=== PATIENT | male | born 1975 ===

== ENCOUNTER 2017-02-03 10:17 | Inpatient (IN) | payer OTHER ==
--- NOTE | 2017-02-03 11:38 | C.PDOC ---
History Of Present Illness 40 y/o male presents to ED with complaints of abdominal pain, abdominal distention and leg swelling for 4 days. Patient reports associated vomiting and denies fever, chills, diarrhea, back pain, dysuria or any other complaints at this time. Time Seen by Provider: 02/03/17 10:42 Chief Complaint (Nursing): Abdominal Pain History Per: Patient History/Exam Limitations: no limitations Onset/Duration Of Symptoms: Days Current Symptoms Are (Timing): Still Present Location Of Pain/Discomfort: Diffuse Quality Of Discomfort: "Pain" Associated Symptoms: Vomiting Past Medical History Reviewed: Historical Data, Nursing Documentation, Vital Signs Vital Signs: Last Vital Signs Temp 98 F 02/03/17 10:26 Pulse 88 02/03/17 17:39 Resp 18 02/03/17 17:39 BP 114/73 02/03/17 17:39 Pulse Ox 100 02/03/17 17:39 - Medical History PMH: No Chronic Diseases Surgical History: No Surg Hx Family History: States: No Known Family Hx - Social History Hx Alcohol Use: Yes Hx Substance Use: No - Immunization History Hx Tetanus Toxoid Vaccination: Yes Hx Influenza Vaccination: No Hx Pneumococcal Vaccination: Yes Review Of Systems Except As Marked, All Systems Reviewed And Found Negative. Constitutional: Negative for: Fever, Chills Gastrointestinal: Positive for: Nausea, Vomiting, Abdominal Pain. Negative for : Diarrhea Genitourinary: Negative for: Dysuria, Hematuria Musculoskeletal: Negative for: Back Pain Skin: Negative for: Rash Physical Exam - Physical Exam Appears: Non-toxic, Chronically Ill Skin: Warm, Dry, Pale, No Rash, Jaundice Head: Atraumatic, Normacephalic Eye(s): bilateral: Scleral Icterus Oral Mucosa: Moist Tongue: Normal Appearing, No Swelling Neck: Normal ROM, Supple Chest: Symmetrical Cardiovascular: Rhythm Regular Respiratory: Normal Breath Sounds, No Rales, No Rhonchi, No Wheezing Gastrointestinal/Abdominal: Distention, No Guarding, No Rebound, Hernia ( Umbilical), Ascites Male Genital: Scrotal Swelling Extremity: No Calf Tenderness, No Deformity, Swelling (Bilateral lower extremities) Neurological/Psych: Oriented x3, Normal Speech, Normal Cognition ED Course And Treatment - Laboratory Results Result Diagrams: 02/03/17 11:55 02/03/17 11:55 O2 Sat by Pulse Oximetry: 98 (RA) Pulse Ox Interpretation: Normal - Other Rad CXR X-Ray: Viewed By Me, Read By Radiologist Interpretation: Accession No. : [id number]. Patient Name / ID : OSCAR ESPINOSA / [id number]. Exam Date : 02/03/2017 12:04:31 ( Approved ). Study Comment : Sex / Age : M / 41Y. Creator : Dori Wirght MD. Dictator : Dori Wright MD. Valve Lapper : Ship/Rec/Doc Control : Dori Wright MD. Approver2 : Report Date : 02/03/2017 12:12:25. My Comment : . HISTORY: abd pain. COMPARISON: None available. TECHNIQUE: Chest, one view. FINDINGS: Examination limited by habitus and hypoinflation. LUNGS: No focal consolidation. Please note that chest x-ray has limited sensitivity for the detection of pulmonary masses. PLEURA: No significant pleural effusion identified. No definite pneumothorax . CARDIOVASCULAR: Heart size appears top normal, likely exaggerated by hypoinflation and portable technique. OSSEOUS STRUCTURES: No acute osseous abnormality identified. VISUALIZED UPPER ABDOMEN : Elevation of the right hemidiaphragm. OTHER FINDINGS: None. IMPRESSION: Hypoinflation. Elevated right hemidiaphragm. - CT Scan/US CT abdomen/pelvis Other Rad Studies (CT/US): Read By Radiologist, Radiology Report Reviewed CT/US Interpretation: Accession No. : [id number]. Patient Name / ID : OSCAR ESPINOSA / [id number]. Exam Date : 02/03/2017 14:14:22 ( Approved ) . Study Comment : Sex / Age : M / 41Y. Creator : Dori Wright MD. Dictator : Dori Wright MD. Valve Lapper : Ship/Rec/Doc Control : Dori Wright MD. Approver2 : Report Date : 02/03/2017 14:49:50. My Comment : . CT abdomen and pelvis without IV contrast. Indication: Abdominal pain, ascites, pancreatitis. Technique: Contiguous axial images of the abdomen and pelvis. No oral or IV contrast administered. Coronal and Sagittal reformats generated and reviewed. This CT exam was performed using 1 or more of the following dose reduction techniques: Automated exposure control, adjustment of the MAA and/or kV according to patient size, and/or use of iterative reconstruction technique. Radiation dose: Total exam DLP = 930.73 mGy-cm. Comparison: None available. Findings: Right basilar atelectasis/ pneumonia. No significant pleural effusion or visible pneumothorax. Calcified granulomas at the right lung base. Extensive diffuse abdominal and pelvic ascites. Nodular hepatic contour consistent with cirrhosis. Heterogeneous hepatic parenchyma. Splenomegaly. Cholelithiasis. The noncontrast kidneys appear unremarkable without hydronephrosis or obstructing calculus. Nodular appearance of the left adrenal gland. The right adrenal gland appears unremarkable. Question pancreatic prominence; otherwise grossly unremarkable unenhanced appearance. The stomach is nondistended. Absence of oral contrast limits evaluation for bowel pathology however colonic wall appears thickened ; correlate clinically for possibility of colitis (i.e. infectious, inflammatory, ischemic). No evidence of bowel obstruction. There is no definite free air. The appendix appears within normal limits of caliber. Fluid filled umbilical hernia. The urinary bladder appears unremarkable. Degenerative changes of the spine. Impression: Extensive diffuse abdominal and pelvic ascites. Nodular hepatic contour consistent with cirrhosis. Heterogeneous hepatic parenchyma. Splenomegaly. Cholelithiasis. Nodular appearance of the left adrenal gland. Question pancreatic prominence; otherwise grossly unremarkable unenhanced appearance. Recommend correlation with amylase and lipase. Absence of oral contrast limits evaluation for bowel pathology however colonic wall appears thickened ; correlate clinically for possibility of colitis (i.e. infectious, inflammatory, ischemic). Fluid filled umbilical hernia. Right basilar atelectasis/ pneumonia. Additional incidental findings as above. Progress Note: Blood work, UA, CXR. Case was d/w Hospitalist who accepted patient to [facility] for admission. Disposition - Disposition Disposition: HOSPITALIZED Disposition Time: 16:50 Condition: FAIR - Clinical Impression Clinical Impression: Abdominal pain, Alcoholic cirrhosis of liver with ascites, Pancreatitis - PA / SALES REPRESENTATIVE [employer] / Resident Statement MD/DO has reviewed & agrees with the documentation as recorded. - Scribe Statement The provider has reviewed the documentation as recorded by the Scribe Bryan Self All medical record entries made by the Carolinaibe were at my direction and personally dictated by me. I have reviewed the chart and agree that the record accurately reflects my personal performance of the history, physical exam, medical decision making, and the department course for this patient. I have also personally directed, reviewed, and agree with the discharge instructions and disposition. Decision To Admit - Pt Status Changed To: Hospital Disposition Of: Inpatient - Admit Certification Admit to Inpatient:: After my assessment, the patient will require hospitalization for at least two midnights. This is because of the severity of symptoms shown, intensity of services needed, and/or the medical risk in this patient being treated as an outpatient. - InPatient: Physician Admission Certification:: patient with liver cirrhosis, ascitis and pancreatitis need more than 2 days of hospitalization - . Bed Request Type: Regular Admitting Physician: Giancarlo Lopez Patient Diagnosis: Abdominal pain, Alcoholic cirrhosis of liver with ascites, Pancreatitis
[2017-02-03 12:01] LABS: BASO # 0.1 K/uL (0.0-0.2); EOS # 0.1 K/uL (0.0-0.7); RBC URINE < 1 /hpf (0-3); URINE BILIRUBIN 1+ (NEGATIVE); URINE BLOOD NEGATIVE (NEGATIVE); URINE COLOR Amber (YELLOW); URINE GLUCOSE (UA) NORMAL (Normal); URINE KETONE NEGATIVE (NEGATIVE); URINE LEUKOCYTE ESTERASE NEG Leu/uL (Negative); URINE PROTEIN NEGATIVE (NEGATIVE); WBC URINE 4 /hpf (0-5)
[2017-02-03 12:07] LABS: BASO % 0.7 % (0.0-2.0); CHLORIDE 98 mmol/L (98-107); EOS % 1.1 % (0.0-4.0); HEMATOCRIT 24.1 % (35.0-51.0); LYMPH # 0.8 K/uL (1.0-4.3); LYMPH % 6.5 % (20.0-40.0); MEAN CELL VOLUME 94.3 fL (80.0-94.0); MEAN CORPUSCULAR HEMOGLOBIN 33.1 pg (27.0-31.0); MEAN CORPUSCULAR HGB CONC 35.1 g/dL (33.0-37.0); MEAN PLATELET VOLUME 8.6 fL (7.2-11.7); MONO # 1.1 K/uL (0.0-0.8); MONO % 9.3 % (0.0-10.0); POTASSIUM 4.2 mmol/L (3.6-5.2); RED CELL DISTRIBUTION WIDTH 18.4 % (11.5-14.5); SODIUM 126 mmol/L (132-148); WHITE BLOOD COUNT 11.8 K/uL (4.8-10.8)
[2017-02-03 12:09] LABS: AST/SGOT 60 U/L (17-59); BILIRUBIN,TOTAL 6.9 mg/dL (0.2-1.3); CARBON DIOXIDE 16 mmol/L (22-30); GFR AFRICAN-AMERICAN > 60; PLATELET COUNT 71 K/uL (130-400)
[2017-02-03 12:10] LABS: ALB/GLOB RATIO 0.5 (1.0-2.1); ALKALINE PHOSPHATASE 135 U/L (38-126); ALT/SGPT 34 U/L (21-72); BLOOD UREA NITROGEN 21 mg/dL (9-20); CALCIUM 7.5 mg/dl (8.6-10.4); GLUCOSE,RANDOM 106 mg/dL (75-110); TOTAL PROTEIN 7.1 g/dL (6.3-8.3)
--- NOTE | 2017-02-03 12:13 | RAD ---
HISTORY: abd pain COMPARISON: None available. TECHNIQUE: Chest, one view. FINDINGS: Examination limited by habitus and hypoinflation. LUNGS: No focal consolidation. Please note that chest x-ray has limited sensitivity for the detection of pulmonary masses. PLEURA: No significant pleural effusion identified. No definite pneumothorax . CARDIOVASCULAR: Heart size appears top normal, likely exaggerated by hypoinflation and portable technique. OSSEOUS STRUCTURES: No acute osseous abnormality identified. VISUALIZED UPPER ABDOMEN: Elevation of the right hemidiaphragm. OTHER FINDINGS: None. IMPRESSION: Hypoinflation. Elevated right hemidiaphragm.
[2017-02-03 12:33] LABS: INR 2.4
[2017-02-03 12:49] LABS: NEUTROPHIL 85 % (50-75); TOTAL CELLS COUNTED 100
[2017-02-03] MEDS ORDERED: Albumin Human 25% (12.5 gm/50 ml) IV ONE (18:24)
[2017-02-03] MEDS ORDERED: Piperacillin/Tazobact 3.375 GM in Sodium Chloride 100 ML IVPB SCH (18:30)
--- NOTE | 2017-02-03 18:33 | CP.PCM.HP ---
<Nicole Bolton - Last Filed: 02/03/17 18:28> History of Present Illness - History of Present Illness History of Present Illness: Internal Medicine Consult for Dr. Ibarra Patient is a 41M presents with abdominal pain, leg pain and vomiting x 3 episodes. Patient states he's had swelling of his abdomen for 3-4 months. Patient said he used to drink a case of beer a day, but stopped 3-4 months ago due to his abdominal swelling. Patient states the pain was in his lower abdomen and left upper quadrant, but was given pain medication in ER and does not have issues at this time. Patient admits to subjective fever, leg pain without numbness. Patient Denies difficulty with vision, nausea, difficulty walking. Patient was given pain medication and is not feeling abdominal pain at this time. PSH: none FHx: DM for Parents, HTN in family, no cancer SHx: former smoker, 10 cigarettes a day. former ETOH abuse Present on Admission - Present on Admission Any Indicators Present on Admission: No History of DVT/PE: No History of Uncontrolled Diabetes: No Urinary Catheter: No Decubitus Ulcer Present: No Past Patient History - Infectious Disease Hx of Infectious Diseases: None - Past Social History Smoking Status: Former Smoker - HEMATOLOGICAL/ONCOLOGICAL Hx Cirrhosis: Yes - PSYCHIATRIC Hx Substance Use: No - SURGICAL HISTORY Hx Surgeries: No - ANESTHESIA Hx Anesthesia: No Meds Allergies/Adverse Reactions: Allergies Allergy/AdvReac Type Severity Reaction Status Date / Time No Known Allergies Allergy Verified 02/03/17 10:25 Physical Exam - Constitutional Appears: Non-toxic - Head Exam Head Exam: NORMAL INSPECTION - Eye Exam Eye Exam: EOMI, Normal appearance, Scleral icterus - ENT Exam ENT Exam: Mucous Membranes Moist - Neck Exam Neck exam: Positive for: Full Rom - Respiratory Exam Respiratory Exam: NORMAL BREATHING PATTERN. absent: Accessory Muscle Use, Chest Wall Tenderness Additional comments: left lung has minor crackles. CXR normal - Cardiovascular Exam Cardiovascular Exam: REGULAR RHYTHM, +S1, +S2. absent: Bradycardia, Tachycardia - GI/Abdominal Exam GI & Abdominal Exam: Distended. absent: Rebound Additional comments: positive fluid wave - Extremities Exam Extremities exam: Positive for: full ROM. Negative for: pedal edema - Back Exam Back exam: FULL ROM, NORMAL INSPECTION - Neurological Exam Neurological exam: Alert, Normal Gait, Oriented x3 - Psychiatric Exam Additional comments: patient seems sluggish, but answers appropriately - Skin Skin Exam: Dry Additional comments: jaundice. Results - Vital Signs Recent Vital Signs: Last Vital Signs Temp 98 F 02/03/17 10:26 Pulse 88 02/03/17 17:39 Resp 18 02/03/17 17:39 BP 114/73 02/03/17 17:39 Pulse Ox 98 02/03/17 18:19 - Labs Result Diagrams: 02/03/17 11:55 02/03/17 11:55 Labs: Laboratory Results - last 24 hr 02/03/17 02/03/17 02/03/17 11:55 11:55 11:55 WBC 11.8 H RBC 2.55 L Hgb 8.4 L Hct 24.1 L MCV 94.3 H MCH 33.1 H MCHC 35.1 RDW 18.4 H Plt Count 71 L MPV 8.6 Neut % (Auto) 82.4 H Lymph % (Auto) 6.5 L Mcpherson % (Auto) 9.3 Eos % (Auto) 1.1 Baso % (Auto) 0.7 Neut # 9.7 H Lymph # 0.8 L Mcpherson # 1.1 H Eos # 0.1 Baso # 0.1 Neutrophils % (Manual) 85 H Lymphocytes % (Manual) 7 L Monocytes % (Manual) 8 Platelet Estimate Decreased L Anisocytosis (manual) Slight PT INR APTT Sodium 126 L Potassium 4.2 Chloride 98 Carbon Dioxide 16 L Anion Gap 16 BUN 21 H Creatinine 1.0 Est GFR ( Amer) > 60 Est GFR (Non-Af Amer) > 60 Random Glucose 106 Calcium 7.5 L Total Bilirubin 6.9 H AST 60 H ALT 34 Alkaline Phosphatase 135 H Ammonia Total Protein 7.1 Albumin 2.4 L Globulin 4.7 H Albumin/Globulin Ratio 0.5 L Lipase 2313 H Urine Color [place] Urine Clarity Clear Urine pH 6.0 Ur Specific [place] 1.017 Urine Protein Negative Urine Glucose (UA) Normal Urine Ketones Negative Urine Blood Negative Urine Nitrate Negative Urine Bilirubin 1+ H Urine Urobilinogen 4.0 Ur Leukocyte Esterase Neg Urine WBC (Auto) 4 Urine RBC (Auto) < 1 Ur Squamous Epith Cells < 1 Urine Opiates Screen Urine Methadone Screen Ur Barbiturates Screen Ur Phencyclidine Scrn Ur Amphetamines Screen U Benzodiazepines Scrn U Oth Cocaine Metabols U Cannabinoids Screen 02/03/17 02/03/1702/03/17 11:55 12:12 17:06 WBC RBC Hgb Hct MCV MCH MCHC RDW Plt Count MPV Neut % (Auto) Lymph % (Auto) Mcpherson % (Auto) Eos % (Auto) Baso % (Auto) Neut # Lymph # Mcpherson # Eos # Baso # Neutrophils % (Manual) Lymphocytes % (Manual) Monocytes % (Manual) Platelet Estimate Anisocytosis (manual) PT 28.3 H INR 2.4 APTT 39 H Sodium Potassium Chloride Carbon Dioxide Anion Gap BUN Creatinine Est GFR ( Amer) Est GFR (Non-Af Amer) Random Glucose Calcium Total Bilirubin AST ALT Alkaline Phosphatase Ammonia 46 H Total Protein Albumin Globulin Albumin/Globulin Ratio Lipase Urine Color Urine Clarity Urine pH Ur Specific [place] Urine Protein Urine Glucose (UA) Urine Ketones Urine Blood Urine Nitrate Urine Bilirubin Urine Urobilinogen Ur Leukocyte Esterase Urine WBC (Auto) Urine RBC (Auto) Ur Squamous Epith Cells Urine Opiates Screen Negative Urine Methadone Screen Negative Ur Barbiturates Screen Negative Ur Phencyclidine Scrn Negative Ur Amphetamines Screen Negative U Benzodiazepines Scrn Negative U Oth Cocaine Metabols Negative U Cannabinoids Screen Negative Assessment & Plan - Assessment and Plan (Free Text) Assessment: 02/03 CXR: elevated Right abbey diaphragm 02/03 CT abdomen:cirrhosis, splenomegaly, pancreas follow up final read Consult GI: Dr. Sykes 02/03 f/u hepatitis Panel follow up recommendations Elevated Lipase 2300 f/u lipase AM Cirrhosis 10mg Lasix QD 25mg Aldactone POQD f/u ammonia AM lactulose 30 POBID tonight Albumin 30mg twice, 1 unit FFP, consented 02/03 follow up INR, PTT 02/04 order for nurse to have paracentesis kit at bedside and box of 1 litter bottles 02/04 plan for Paracentesis tomorrow 02/04 Zosyn 3.375gm Q8H Diet: Clear Liquid Diet Prophylaxis Protonix DVT: SCD Nicole Bolton DO PGY1 - Date & Time Date: 02/03/17 Time: 18:39 <David Ibarra H - Last Filed: 02/04/17 08:11> Results - Vital Signs Recent Vital Signs: Last Vital Signs Temp 97.6 F 02/04/17 04:15 Pulse 83 02/04/17 04:15 Resp 20 02/04/17 04:15 BP 107/51 L 02/04/17 04:15 Pulse Ox 98 02/04/17 04:15 - Labs Result Diagrams: 02/03/17 18:42 02/04/17 07:33 Labs: Laboratory Results - last 24 hr 02/03/17 02/03/17 02/03/17 11:55 11:55 11:55 WBC 11.8 H RBC 2.55 L Hgb 8.4 L Hct 24.1 L MCV 94.3 H MCH 33.1 H MCHC 35.1 RDW 18.4 H Plt Count 71 L MPV 8.6 Neut % (Auto) 82.4 H Lymph % (Auto) 6.5 L Mcpherson % (Auto) 9.3 Eos % (Auto) 1.1 Baso % (Auto) 0.7 Neut # 9.7 H Lymph # 0.8 L Mcpherson # 1.1 H Eos # 0.1 Baso # 0.1 Neutrophils % (Manual) 85 H Lymphocytes % (Manual) 7 L Monocytes % (Manual) 8 Platelet Estimate Decreased L Anisocytosis (manual) Slight PT INR APTT Sodium 126 L Potassium 4.2 Chloride 98 Carbon Dioxide 16 L Anion Gap 16 BUN 21 H Creatinine 1.0 Est GFR ( Amer) > 60 Est GFR (Non-Af Amer) > 60 Random Glucose 106 Calcium 7.5 L Total Bilirubin 6.9 H AST 60 H ALT 34 Alkaline Phosphatase 135 H Ammonia Total Protein 7.1 Albumin 2.4 L Globulin 4.7 H Albumin/Globulin Ratio 0.5 L Lipase 2313 H Urine Color [place] Urine Clarity Clear Urine pH 6.0 Ur Specific [place] 1.017 Urine Protein Negative Urine Glucose (UA) Normal Urine Ketones Negative Urine Blood Negative Urine Nitrate Negative Urine Bilirubin 1+ H Urine Urobilinogen 4.0 Ur Leukocyte Esterase Neg Urine WBC (Auto) 4 Urine RBC (Auto) < 1 Ur Squamous Epith Cells < 1 Urine Opiates Screen Urine Methadone Screen Ur Barbiturates Screen Ur Phencyclidine Scrn Ur Amphetamines Screen U Benzodiazepines Scrn U Oth Cocaine Metabols U Cannabinoids Screen Alcohol, Quantitative Blood Type Antibody Screen 02/03/17 02/03/17 02/03/17 11:55 12:12 16:58 WBC RBC Hgb Hct MCV MCH MCHC RDW Plt Count MPV Neut % (Auto) Lymph % (Auto) [place]pher[place] % (Auto) Eos % (Auto) Baso % (Auto) Neut # Lymph # [place] # Eos # Baso # Neutrophils % (Manual) Lymphocytes % (Manual) Monocytes % (Manual) Platelet Estimate Anisocytosis (manual) PT 28.3 H INR 2.4 APTT 39 H Sodium Potassium Chloride Carbon Dioxide Anion Gap BUN Creatinine Est GFR ( Amer) Est GFR (Non-Af Amer) Random Glucose Calcium Total Bilirubin AST ALT Alkaline Phosphatase Ammonia 46 H Total Protein Albumin Globulin Albumin/Globulin Ratio Lipase Urine Color Urine Clarity Urine pH Ur Specific [place] Urine Protein Urine Glucose (UA) Urine Ketones Urine Blood Urine Nitrate Urine Bilirubin Urine Urobilinogen Ur Leukocyte Esterase Urine WBC (Auto) Urine RBC (Auto) Ur Squamous Epith Cells Urine Opiates Screen Urine Methadone Screen Ur Barbiturates Screen Ur Phencyclidine Scrn Ur Amphetamines Screen U Benzodiazepines Scrn U Oth Cocaine Metabols U Cannabinoids Screen Alcohol, Quantitative < 10 Blood Type Antibody Screen 02/03/17 02/03/17 02/03/17 17:06 18:42 19:41 WBC 9.2 RBC 2.50 L Hgb 8.4 L Hct 23.9 L MCV 95.8 H MCH 33.6 H MCHC 35.1 RDW 18.2 H Plt Count 69 L MPV 8.5 Neut % (Auto) 74.9 Lymph % (Auto) 11.9 L Mcpherson % (Auto) 10.3 H Eos % (Auto) 2.0 Baso % (Auto) 0.9 Neut # 6.9 Lymph # 1.1 Mcpherson # 0.9 H Eos # 0.2 Baso # 0.1 Neutrophils % (Manual) Lymphocytes % (Manual) Monocytes % (Manual) Platelet Estimate Anisocytosis (manual) PT INR APTT Sodium Potassium Chloride Carbon Dioxide Anion Gap BUN Creatinine Est GFR ( Amer) Est GFR (Non-Af Amer) Random Glucose Calcium Total Bilirubin AST ALT Alkaline Phosphatase Ammonia Total Protein Albumin Globulin Albumin/Globulin Ratio Lipase Urine Color Urine Clarity Urine pH Ur Specific [place] Urine Protein Urine Glucose (UA) Urine Ketones Urine Blood Urine Nitrate Urine Bilirubin Urine Urobilinogen Ur Leukocyte Esterase Urine WBC (Auto) Urine RBC (Auto) Ur Squamous Epith Cells Urine Opiates Screen Negative Urine Methadone Screen Negative Ur Barbiturates Screen Negative Ur Phencyclidine Scrn Negative Ur Amphetamines Screen Negative U Benzodiazepines Scrn Negative U Oth Cocaine Metabols Negative U Cannabinoids Screen Negative Alcohol, Quantitative Blood Type O POSITIVE Antibody Screen Negative 02/04/17 02/04/17 02/04/17 06:25 07:33 07:33 WBC RBC Hgb Hct MCV MCH MCHC RDW Plt Count MPV Neut % (Auto) Lymph % (Auto) Mcpherson % (Auto) Eos % (Auto) Baso % (Auto) Neut # Lymph # [place] # Eos # Baso # Neutrophils % (Manual) Lymphocytes % (Manual) Monocytes % (Manual) Platelet Estimate Anisocytosis (manual) PT 24.3 H INR 2.1 APTT 37 H Sodium 129 L Potassium 3.7 Chloride 101 Carbon Dioxide 18 L Anion Gap 14 BUN 12 Creatinine 0.6 L Est GFR ( Amer) > 60 Est GFR (Non-Af Amer) > 60 Random Glucose 87 Calcium 7.6 L Total Bilirubin 5.8 H AST 47 ALT 29 Alkaline Phosphatase 98 Ammonia 23 D Total Protein 6.2 L Albumin 2.1 L Globulin 4.1 H Albumin/Globulin Ratio 0.5 L Lipase 266 Urine Color Urine Clarity Urine pH Ur Specific [place] Urine Protein Urine Glucose (UA) Urine Ketones Urine Blood Urine Nitrate Urine Bilirubin Urine Urobilinogen Ur Leukocyte Esterase Urine WBC (Auto) Urine RBC (Auto) Ur Squamous Epith Cells Urine Opiates Screen Urine Methadone Screen Ur Barbiturates Screen Ur Phencyclidine Scrn Ur Amphetamines Screen U Benzodiazepines Scrn U Oth Cocaine Metabols U Cannabinoids Screen Alcohol, Quantitative Blood Type Antibody Screen Attending/Attestation - Attestation I have personally seen and examined this patient.: Yes I have fully participated in the care of the patient.: Yes I have reviewed all pertinent clinical information: Yes Notes (Text): Medical Attending: Patient was seen and examined by me. Agree with the above note by the resident From what I understand the patient has a history of heavy alcohol use. It is not clear if he has/had hepatitis or a liver toxicicity or potential other liver pathologies. The patient seems to think it is due to his history of drinking. He intially came in with the CC of abdominal distention and this is giving him difficulty with walking. His medications include lasix as well as aldactone The patient explains he has not needed a paracentesis before in the past. The INR was 2.4, this is too high for paracenteis so will give FFP as well as vitamin K The patient has a low albumin as well, so will give albumin both before and after paracentesis. Platelet count is stable for now. Hopefully with the paracentesis will need things such as cytology, cell count, ph. protein, LDH, culture, etc. We did place him on abx as a precuation since he reported fever. Because this is his first time here at [facility] will get GI evaluation as well David Ibarra
[2017-02-03 18:54] LABS: BASO # 0.1 K/uL (0.0-0.2); BASO % 0.9 % (0.0-2.0); EOS # 0.2 K/uL (0.0-0.7); HEMATOCRIT 23.9 % (35.0-51.0); LYMPH # 1.1 K/uL (1.0-4.3); LYMPH % 11.9 % (20.0-40.0); MEAN CELL VOLUME 95.8 fL (80.0-94.0); MEAN CORPUSCULAR HEMOGLOBIN 33.6 pg (27.0-31.0); MEAN CORPUSCULAR HGB CONC 35.1 g/dL (33.0-37.0); MEAN PLATELET VOLUME 8.5 fL (7.2-11.7); MONO # 0.9 K/uL (0.0-0.8); MONO % 10.3 % (0.0-10.0); NRBC % 0.1 % (0.0-2.0); RED CELL DISTRIBUTION WIDTH 18.2 % (11.5-14.5); WHITE BLOOD COUNT 9.2 K/uL (4.8-10.8)
[2017-02-03] MEDS ORDERED: Sodium Chloride 0.9% 500 ML IV STA (18:58)
[2017-02-03] MEDS ORDERED: Sodium Chloride 0.9% 500 ML IV SCH (19:00)
--- NOTE | 2017-02-03 19:59 | CT ---
CT abdomen and pelvis without IV contrast Indication: Abdominal pain, ascites, pancreatitis Technique: Contiguous axial images of the abdomen and pelvis. No oral or IV contrast administered. Coronal and Sagittal reformats generated and reviewed. This CT exam was performed using 1 or more of the following dose reduction techniques: Automated exposure control, adjustment of the MAA and/or kV according to patient size, and/or use of iterative reconstruction technique. Radiation dose: Total exam DLP = 930.73 mGy-cm. Comparison: None available Findings: Right basilar atelectasis/ pneumonia. No significant pleural effusion or visible pneumothorax. Calcified granulomas at the right lung base. Extensive diffuse abdominal and pelvic ascites. Nodular hepatic contour consistent with cirrhosis. Heterogeneous hepatic parenchyma. Splenomegaly. Cholelithiasis. The noncontrast kidneys appear unremarkable without hydronephrosis or obstructing calculus. Nodular appearance of the left adrenal gland. The right adrenal gland appears unremarkable. Question pancreatic prominence; otherwise grossly unremarkable unenhanced appearance. The stomach is nondistended. Absence of oral contrast limits evaluation for bowel pathology however colonic wall appears thickened ; correlate clinically for possibility of colitis (i.e. infectious, inflammatory, ischemic). No evidence of bowel obstruction. There is no definite free air. The appendix appears within normal limits of caliber. Fluid filled umbilical hernia. The urinary bladder appears unremarkable. Degenerative changes of the spine. Impression: Extensive diffuse abdominal and pelvic ascites. Nodular hepatic contour consistent with cirrhosis. Heterogeneous hepatic parenchyma. Splenomegaly. Cholelithiasis. Nodular appearance of the left adrenal gland. Question pancreatic prominence; otherwise grossly unremarkable unenhanced appearance. Recommend correlation with amylase and lipase. Absence of oral contrast limits evaluation for bowel pathology however colonic wall appears thickened ; correlate clinically for possibility of colitis (i.e. infectious, inflammatory, ischemic). Fluid filled umbilical hernia. Right basilar atelectasis/ pneumonia. Additional incidental findings as above.
[2017-02-03] MEDS: Albumin Human 25% (12.5 gm/50 ml) IV SCH (21:41)
[2017-02-03] MEDS: Piperacillin/Tazobact 3.375 GM in Sodium Chloride 100 ML IVPB SCH (22:03)
[2017-02-04] MEDS: Piperacillin/Tazobact 3.375 GM in Sodium Chloride 100 ML IVPB SCH ×3 (06:00→22:16)
[2017-02-04 06:42] LABS: INR 2.1
[2017-02-04 07:49] LABS: CHLORIDE 101 mmol/L (98-107); POTASSIUM 3.7 mmol/L (3.6-5.2); SODIUM 129 mmol/L (132-148)
[2017-02-04 07:51] LABS: BILIRUBIN,TOTAL 5.8 mg/dL (0.2-1.3); GFR AFRICAN-AMERICAN > 60
[2017-02-04 07:52] LABS: ALB/GLOB RATIO 0.5 (1.0-2.1); ALKALINE PHOSPHATASE 98 U/L (38-126); ALT/SGPT 29 U/L (21-72); AST/SGOT 47 U/L (17-59); BLOOD UREA NITROGEN 12 mg/dL (9-20); CALCIUM 7.6 mg/dl (8.6-10.4); CARBON DIOXIDE 18 mmol/L (22-30); GLUCOSE,RANDOM 87 mg/dL (75-110); TOTAL PROTEIN 6.2 g/dL (6.3-8.3)
[2017-02-04] MEDS: Albumin Human 25% (12.5 gm/50 ml) IV SCH (08:22)
--- NOTE | 2017-02-04 08:58 | CP.PCM.CON ---
<Nayeli Roca - Last Filed: 02/04/17 08:59> History of Present Illness - History of Present Illness History of Present Illness: GI Fellow PGY4 Consult Note This is a 41yM with no prior pmhx except heavy alcohol drinking presents with increasing abdominal girth,ascites, LE edema, nausea, vomiting and abdominal pain. Patient states he's had swelling of his abdomen for 3-4 months. Patient said he used to drink a case of beer a day, but stopped 3-4 months ago due to his abdominal swelling. Patient states the pain was in his lower abdomen and left upper quadrant, but was given pain medication in ER and does not have issues at this time. Pt was prescribed Lasix/spironolactone by PCP in November which does not seem to be helping. No prior EGD/colonoscopy. Ros: A 12pt ROS was obtained and was negative except as above. PmHx: As stated in HPI PSHx: none FHx: DM for Parents, HTN in family, no cancer SHx: former smoker, ETOH [id number] of beer daily for 15 yrs, quite 3-4 months ago Past Patient History - Infectious Disease Hx of Infectious Diseases: None - Past Social History Smoking Status: Former Smoker - CARDIAC Hx Cardiac Disorders: No - PULMONARY Hx Respiratory Disorders: No - NEUROLOGICAL Hx Neurological Disorder: No - HEENT Hx HEENT Problems: No - RENAL Hx Chronic Kidney Disease: No - ENDOCRINE/METABOLIC Hx Endocrine Disorders: No - HEMATOLOGICAL/ONCOLOGICAL Hx Blood Disorders: No - INTEGUMENTARY Hx Dermatological Problems: No - MUSCULOSKELETAL/RHEUMATOLOGICAL Hx Falls: No Hx Fractures: Yes (Right arm, ribs) - GASTROINTESTINAL Hx Gastrointestinal Disorders: No - GENITOURINARY/GYNECOLOGICAL Hx Genitourinary Disorders: No - PSYCHIATRIC Hx Psychophysiologic Disorder: No Hx Substance Use: No - SURGICAL HISTORY Hx Surgeries: Yes Other/Comment: Right arm fx 6 yrs old - ANESTHESIA Hx Anesthesia: No (unclear) Meds Allergies/Adverse Reactions: Allergies Allergy/AdvReac Type Severity Reaction Status Date / Time No Known Allergies Allergy Verified 02/03/17 10:25 - Medications Medications: Current Medications Albumin Human (Albumin Human 25% (12.5 Gm/50 Ml)) 12.5 gm IV BID [facility] Stop: 02/04/17 10:01 Last Admin: 02/04/17 08:22 Dose: 12.5 gm Furosemide (Lasix) 20 mg IVP DAILY [facility] Piperacillin Sod/Tazobactam (Sod 3.375 gm/ Sodium Chloride) 100 mls @ 200 mls/ hr IVPB Q8 [facility] Last Admin: 02/04/17 06:00 Dose: 200 mls/hr Lactulose (Enulose) 30 gm PO BID [facility] Last Admin: 02/04/17 08:20 Dose: 30 gm Pantoprazole Sodium (Protonix Inj) 40 mg IVP DAILY [facility] Last Admin: 02/04/17 08:23 Dose: 40 mg Pneumococcal Polyvalent Vaccine (Pneumovax 23 Vaccine) 0.5 ml IM .ONCE ONE Stop: 02/06/17 10:01 Spironolactone (Aldactone) 25 mg PO BID [facility] Last Admin: 02/04/17 08:23 Dose: 25 mg Physical Exam - Constitutional Appears: No Acute Distress - Head Exam Head Exam: ATRAUMATIC, NORMAL INSPECTION, NORMOCEPHALIC - Eye Exam Eye Exam: EOMI, Scleral icterus Pupil Exam: PERRL - ENT Exam ENT Exam: Mucous Membranes Moist, Normal Exam - Neck Exam Neck exam: Positive for: Normal Inspection - Respiratory Exam Respiratory Exam: Decreased Breath Sounds, NORMAL BREATHING PATTERN - Cardiovascular Exam Cardiovascular Exam: RRR, +S1, +S2 - GI/Abdominal Exam GI & Abdominal Exam: Distended, Normal Bowel Sounds, Soft, Tenderness. absent: Organomegaly Additional comments: Ascites, fluid wave, umbilical hernia - Rectal Exam Rectal Exam: Deferred - Extremities Exam Extremities exam: Positive for: full ROM, pedal edema - Back Exam Back exam: NORMAL INSPECTION - Psychiatric Exam Psychiatric exam: Normal Affect, Normal Mood - Skin Skin Exam: Dry, Intact, Warm Additional comments: Jaundiced Results - Vital Signs Recent Vital Signs: Last Vital Signs Temp 98.1 F 02/04/17 08:33 Pulse 92 H 02/04/17 08:33 Resp 20 02/04/17 08:33 BP 129/70 02/04/17 08:33 Pulse Ox 99 02/04/17 08:33 - Labs Result Diagrams: 02/03/17 18:42 02/04/17 07:33 Labs: Laboratory Results - last 24 hr 02/03/17 02/03/17 02/03/17 11:55 11:55 11:55 WBC 11.8 H RBC 2.55 L Hgb 8.4 L Hct 24.1 L MCV 94.3 H MCH 33.1 H MCHC 35.1 RDW 18.4 H Plt Count 71 L MPV 8.6 Neut % (Auto) 82.4 H Lymph % (Auto) 6.5 L [place] % (Auto) 9.3 Eos % (Auto) 1.1 Baso % (Auto) 0.7 Neut # 9.7 H Lymph # 0.8 L [place] # 1.1 H Eos # 0.1 Baso # 0.1 Neutrophils % (Manual) 85 H Lymphocytes % (Manual) 7 L Monocytes % (Manual) 8 Platelet Estimate Decreased L Anisocytosis (manual) Slight PT INR APTT Sodium 126 L Potassium 4.2 Chloride 98 Carbon Dioxide 16 L Anion Gap 16 BUN 21 H Creatinine 1.0 Est GFR ( Amer) > 60 Est GFR (Non-Af Amer) > 60 Random Glucose 106 Calcium 7.5 L Total Bilirubin 6.9 H AST 60 H ALT 34 Alkaline Phosphatase 135 H Ammonia Total Protein 7.1 Albumin 2.4 L Globulin 4.7 H Albumin/Globulin Ratio 0.5 L Lipase 2313 H Urine Color [place] Urine Clarity Clear Urine pH 6.0 Ur Specific [place] 1.017 Urine Protein Negative Urine Glucose (UA) Normal Urine Ketones Negative Urine Blood Negative Urine Nitrate Negative Urine Bilirubin 1+ H Urine Urobilinogen 4.0 Ur Leukocyte Esterase Neg Urine WBC (Auto) 4 Urine RBC (Auto) < 1 Ur Squamous Epith Cells < 1 Urine Opiates Screen Urine Methadone Screen Ur Barbiturates Screen Ur Phencyclidine Scrn Ur Amphetamines Screen U Benzodiazepines Scrn U Oth Cocaine Metabols U Cannabinoids Screen Alcohol, Quantitative Blood Type Antibody Screen 02/03/17 02/03/17 02/03/17 11:55 12:12 16:58 WBC RBC Hgb Hct MCV MCH MCHC RDW Plt Count MPV Neut % (Auto) Lymph % (Auto) [place] % (Auto) Eos % (Auto) Baso % (Auto) Neut # Lymph # [place] # Eos # Baso # Neutrophils % (Manual) Lymphocytes % (Manual) Monocytes % (Manual) Platelet Estimate Anisocytosis (manual) PT 28.3 H INR 2.4 APTT 39 H Sodium Potassium Chloride Carbon Dioxide Anion Gap BUN Creatinine Est GFR ( Amer) Est GFR (Non-Af Amer) Random Glucose Calcium Total Bilirubin AST ALT Alkaline Phosphatase Ammonia 46 H Total Protein Albumin Globulin Albumin/Globulin Ratio Lipase Urine Color Urine Clarity Urine pH Ur Specific [place] Urine Protein Urine Glucose (UA) Urine Ketones Urine Blood Urine Nitrate Urine Bilirubin Urine Urobilinogen Ur Leukocyte Esterase Urine WBC (Auto) Urine RBC (Auto) Ur Squamous Epith Cells Urine Opiates Screen Urine Methadone Screen Ur Barbiturates Screen Ur Phencyclidine Scrn Ur Amphetamines Screen U Benzodiazepines Scrn U Oth Cocaine Metabols U Cannabinoids Screen Alcohol, Quantitative < 10 Blood Type Antibody Screen 02/03/17 02/03/17 02/03/17 17:06 18:42 19:41 WBC 9.2 RBC 2.50 L Hgb 8.4 L Hct 23.9 L MCV 95.8 H MCH 33.6 H MCHC 35.1 RDW 18.2 H Plt Count 69 L MPV 8.5 Neut % (Auto) 74.9 Lymph % (Auto) 11.9 L [place] % (Auto) 10.3 H Eos % (Auto) 2.0 Baso % (Auto) 0.9 Neut # 6.9 Lymph # 1.1 [place] # 0.9 H Eos # 0.2 Baso # 0.1 Neutrophils % (Manual) Lymphocytes % (Manual) Monocytes % (Manual) Platelet Estimate Anisocytosis (manual) PT INR APTT Sodium Potassium Chloride Carbon Dioxide Anion Gap BUN Creatinine Est GFR ( Amer) Est GFR (Non-Af Amer) Random Glucose Calcium Total Bilirubin AST ALT Alkaline Phosphatase Ammonia Total Protein Albumin Globulin Albumin/Globulin Ratio Lipase Urine Color Urine Clarity Urine pH Ur Specific [place] Urine Protein Urine Glucose (UA) Urine Ketones Urine Blood Urine Nitrate Urine Bilirubin Urine Urobilinogen Ur Leukocyte Esterase Urine WBC (Auto) Urine RBC (Auto) Ur Squamous Epith Cells Urine Opiates Screen Negative Urine Methadone Screen Negative Ur Barbiturates Screen Negative Ur Phencyclidine Scrn Negative Ur Amphetamines Screen Negative U Benzodiazepines Scrn Negative U Oth Cocaine Metabols Negative U Cannabinoids Screen Negative Alcohol, Quantitative Blood Type O POSITIVE Antibody Screen Negative 02/04/17 02/04/17 02/04/17 06:25 07:33 07:33 WBC RBC Hgb Hct MCV MCH MCHC RDW Plt Count MPV Neut % (Auto) Lymph % (Auto) [place] % (Auto) Eos % (Auto) Baso % (Auto) Neut # Lymph # [place] # Eos # Baso # Neutrophils % (Manual) Lymphocytes % (Manual) Monocytes % (Manual) Platelet Estimate Anisocytosis (manual) PT 24.3 H INR 2.1 APTT 37 H Sodium 129 L Potassium 3.7 Chloride 101 Carbon Dioxide 18 L Anion Gap 14 BUN 12 Creatinine 0.6 L Est GFR ( Amer) > 60 Est GFR (Non-Af Amer) > 60 Random Glucose 87 Calcium 7.6 L Total Bilirubin 5.8 H AST 47 ALT 29 Alkaline Phosphatase 98 Ammonia 23 D Total Protein 6.2 L Albumin 2.1 L Globulin 4.1 H Albumin/Globulin Ratio 0.5 L Lipase 266 Urine Color Urine Clarity Urine pH Ur Specific [place] Urine Protein Urine Glucose (UA) Urine Ketones Urine Blood Urine Nitrate Urine Bilirubin Urine Urobilinogen Ur Leukocyte Esterase Urine WBC (Auto) Urine RBC (Auto) Ur Squamous Epith Cells Urine Opiates Screen Urine Methadone Screen Ur Barbiturates Screen Ur Phencyclidine Scrn Ur Amphetamines Screen U Benzodiazepines Scrn U Oth Cocaine Metabols U Cannabinoids Screen Alcohol, Quantitative Blood Type Antibody Screen Assessment & Plan - Assessment and Plan (Free Text) Assessment: 41 yM with pmhx of alcohol abuse pw worsening abdominal pain and ascities and LE edema. No prior EGD/colonoscopy. 1. Alcoholic cirrhosis -decompensated 2. Ascities 3. Hx alcohol abuse Plan: -MELD 30 -CT A/P without IV contrast shows cirrhosis and ascites -Will order CT Liver protocol, order AFP -Hepatitis panel negative and autoimmune workup -Continue Lasix-recommend lasix 40mg daily and add spironolactone 100mg daily -Diagnostic and therapeutic paracentesis and based on how much peritoneal fluid removed will give albumin -Will order peritoneal fluid cell count, albumin, total protein, cx r/o SBP -strict I&Os -daily LFTs, INR -low salt diet, high protein 20g, 2,500 calorie diet -supportive care: anti-emetics, PPI -alcohol cessation counselling -will follow clinical course <Igor Sykes Y - Last Filed: 02/04/17 09:21> Meds - Medications Medications: Current Medications Albumin Human (Albumin Human 25% (12.5 Gm/50 Ml)) 12.5 gm IV BID [facility] Stop: 02/04/17 10:01 Last Admin: 02/04/17 08:22 Dose: 12.5 gm Furosemide (Lasix) 20 mg IVP DAILY [facility] Piperacillin Sod/Tazobactam (Sod 3.375 gm/ Sodium Chloride) 100 mls @ 200 mls/ hr IVPB Q8 [facility] Last Admin: 02/04/17 06:00 Dose: 200 mls/hr Lactulose (Enulose) 30 gm PO BID [facility] Last Admin: 02/04/17 08:20 Dose: 30 gm Pantoprazole Sodium (Protonix Inj) 40 mg IVP DAILY [facility] Last Admin: 02/04/17 08:23 Dose: 40 mg Pneumococcal Polyvalent Vaccine (Pneumovax 23 Vaccine) 0.5 ml IM .ONCE ONE Stop: 02/06/17 10:01 Results - Vital Signs Recent Vital Signs: Last Vital Signs Temp 98.1 F 02/04/17 08:33 Pulse 92 H 02/04/17 08:33 Resp 20 02/04/17 08:33 BP 129/70 02/04/17 08:33 Pulse Ox 99 02/04/17 08:33 - Labs Result Diagrams: 02/03/17 18:42 02/04/17 07:33 Labs: Laboratory Results - last 24 hr 02/03/17 02/03/17 02/03/17 11:55 11:55 11:55 WBC 11.8 H RBC 2.55 L Hgb 8.4 L Hct 24.1 L MCV 94.3 H MCH 33.1 H MCHC 35.1 RDW 18.4 H Plt Count 71 L MPV 8.6 Neut % (Auto) 82.4 H Lymph % (Auto) 6.5 L [place] % (Auto) 9.3 Eos % (Auto) 1.1 Baso % (Auto) 0.7 Neut # 9.7 H Lymph # 0.8 L [place] # 1.1 H Eos # 0.1 Baso # 0.1 Neutrophils % (Manual) 85 H Lymphocytes % (Manual) 7 L Monocytes % (Manual) 8 Platelet Estimate Decreased L Anisocytosis (manual) Slight PT INR APTT Sodium 126 L Potassium 4.2 Chloride 98 Carbon Dioxide 16 L Anion Gap 16 BUN 21 H Creatinine 1.0 Est GFR ( Amer) > 60 Est GFR (Non-Af Amer) > 60 Random Glucose 106 Calcium 7.5 L Total Bilirubin 6.9 H AST 60 H ALT 34 Alkaline Phosphatase 135 H Ammonia Total Protein 7.1 Albumin 2.4 L Globulin 4.7 H Albumin/Globulin Ratio 0.5 L Lipase 2313 H Urine Color [place] Urine Clarity Clear Urine pH 6.0 Ur Specific [place] 1.017 Urine Protein Negative Urine Glucose (UA) Normal Urine Ketones Negative Urine Blood Negative Urine Nitrate Negative Urine Bilirubin 1+ H Urine Urobilinogen 4.0 Ur Leukocyte Esterase Neg Urine WBC (Auto) 4 Urine RBC (Auto) < 1 Ur Squamous Epith Cells < 1 Urine Opiates Screen Urine Methadone Screen Ur Barbiturates Screen Ur Phencyclidine Scrn Ur Amphetamines Screen U Benzodiazepines Scrn U Oth Cocaine Metabols U Cannabinoids Screen Alcohol, Quantitative Blood Type Antibody Screen 02/03/17 02/03/17 02/03/17 11:55 12:12 16:58 WBC RBC Hgb Hct MCV MCH MCHC RDW Plt Count MPV Neut % (Auto) Lymph % (Auto) [place] % (Auto) Eos % (Auto) Baso % (Auto) Neut # Lymph # [place] # Eos # Baso # Neutrophils % (Manual) Lymphocytes % (Manual) Monocytes % (Manual) Platelet Estimate Anisocytosis (manual) PT 28.3 H INR 2.4 APTT 39 H Sodium Potassium Chloride Carbon Dioxide Anion Gap BUN Creatinine Est GFR ( Amer) Est GFR (Non-Af Amer) Random Glucose Calcium Total Bilirubin AST ALT Alkaline Phosphatase Ammonia 46 H Total Protein Albumin Globulin Albumin/Globulin Ratio Lipase Urine Color Urine Clarity Urine pH Ur Specific [place] Urine Protein Urine Glucose (UA) Urine Ketones Urine Blood Urine Nitrate Urine Bilirubin Urine Urobilinogen Ur Leukocyte Esterase Urine WBC (Auto) Urine RBC (Auto) Ur Squamous Epith Cells Urine Opiates Screen Urine Methadone Screen Ur Barbiturates Screen Ur Phencyclidine Scrn Ur Amphetamines Screen U Benzodiazepines Scrn U Oth Cocaine Metabols U Cannabinoids Screen Alcohol, Quantitative < 10 Blood Type Antibody Screen 02/03/17 02/03/17 02/03/17 17:06 18:42 19:41 WBC 9.2 RBC 2.50 L Hgb 8.4 L Hct 23.9 L MCV 95.8 H MCH 33.6 H MCHC 35.1 RDW 18.2 H Plt Count 69 L MPV 8.5 Neut % (Auto) 74.9 Lymph % (Auto) 11.9 L [place] % (Auto) 10.3 H Eos % (Auto) 2.0 Baso % (Auto) 0.9 Neut # 6.9 Lymph # 1.1 [place] # 0.9 H Eos # 0.2 Baso # 0.1 Neutrophils % (Manual) Lymphocytes % (Manual) Monocytes % (Manual) Platelet Estimate Anisocytosis (manual) PT INR APTT Sodium Potassium Chloride Carbon Dioxide Anion Gap BUN Creatinine Est GFR ( Amer) Est GFR (Non-Af Amer) Random Glucose Calcium Total Bilirubin AST ALT Alkaline Phosphatase Ammonia Total Protein Albumin Globulin Albumin/Globulin Ratio Lipase Urine Color Urine Clarity Urine pH Ur Specific [place] Urine Protein Urine Glucose (UA) Urine Ketones Urine Blood Urine Nitrate Urine Bilirubin Urine Urobilinogen Ur Leukocyte Esterase Urine WBC (Auto) Urine RBC (Auto) Ur Squamous Epith Cells Urine Opiates Screen Negative Urine Methadone Screen Negative Ur Barbiturates Screen Negative Ur Phencyclidine Scrn Negative Ur Amphetamines Screen Negative U Benzodiazepines Scrn Negative U Oth Cocaine Metabols Negative U Cannabinoids Screen Negative Alcohol, Quantitative Blood Type O POSITIVE Antibody Screen Negative 02/04/17 02/04/17 02/04/17 06:25 07:33 07:33 WBC RBC Hgb Hct MCV MCH MCHC RDW Plt Count MPV Neut % (Auto) Lymph % (Auto) [place] % (Auto) Eos % (Auto) Baso % (Auto) Neut # Lymph # [place] # Eos # Baso # Neutrophils % (Manual) Lymphocytes % (Manual) Monocytes % (Manual) Platelet Estimate Anisocytosis (manual) PT 24.3 H INR 2.1 APTT 37 H Sodium 129 L Potassium 3.7 Chloride 101 Carbon Dioxide 18 L Anion Gap 14 BUN 12 Creatinine 0.6 L Est GFR ( Amer) > 60 Est GFR (Non-Af Amer) > 60 Random Glucose 87 Calcium 7.6 L Total Bilirubin 5.8 H AST 47 ALT 29 Alkaline Phosphatase 98 Ammonia 23 D Total Protein 6.2 L Albumin 2.1 L Globulin 4.1 H Albumin/Globulin Ratio 0.5 L Lipase 266 Urine Color Urine Clarity Urine pH Ur Specific [place] Urine Protein Urine Glucose (UA) Urine Ketones Urine Blood Urine Nitrate Urine Bilirubin Urine Urobilinogen Ur Leukocyte Esterase Urine WBC (Auto) Urine RBC (Auto) Ur Squamous Epith Cells Urine Opiates Screen Urine Methadone Screen Ur Barbiturates Screen Ur Phencyclidine Scrn Ur Amphetamines Screen U Benzodiazepines Scrn U Oth Cocaine Metabols U Cannabinoids Screen Alcohol, Quantitative Blood Type Antibody Screen Attending/Attestation - Attestation I have personally seen and examined this patient.: Yes I have fully participated in the care of the patient.: Yes I have reviewed all pertinent clinical information: Yes Notes (Text): 02/04/17 09:12 I have seen and examined patient with GI fellow. Agree with above documentation with the following additions. In brief, this is a 41 year old male with history of ETOH abuse who presents to hospital with progressive increase in abdominal girth over the past 2-3 months along with abdominal pain, nausea, vomiting over the past one week. He claims to have stopped ETOH consumption 3-4 months ago but notes worsening of lower extremity edema during this time period. He otherwise denies weight loss, rectal bleeding, or change in bowel habits. No prior endoscopic evaluation. Decompensated cirrhosis in setting of previous ETOH abuse - admission MELD 30 Abdominal pain, ascites Jaundice Anemia - Low sodium diet as tolerated - Agree with empiric antibiotic coverage for SBP until diagnostic/therapeutic paracentesis is able to be performed. Patient was given FFP yesterday in preparation for potential tap today as per medical team. - Obtain viral hepatitis and autoimmune panel - Continue with diuretic therapies, monitor electrolytes - Continue to monitor LFTs - ETOH cessation counseling - Patient will eventually require CT triple phase liver protocol for evaluation of HCC and EGD for variceal screening. Will continue to monitor patient clinical course.
[2017-02-04 11:10] LABS: BASO # 0.1 K/uL (0.0-0.2); BASO % 1.5 % (0.0-2.0); EOS # 0.2 K/uL (0.0-0.7); EOS % 3.5 % (0.0-4.0); HEMATOCRIT 22.7 % (35.0-51.0); LYMPH # 0.9 K/uL (1.0-4.3); LYMPH % 16.3 % (20.0-40.0); MEAN CELL VOLUME 95.3 fL (80.0-94.0); MEAN CORPUSCULAR HEMOGLOBIN 33.2 pg (27.0-31.0); MEAN CORPUSCULAR HGB CONC 34.8 g/dL (33.0-37.0); MEAN PLATELET VOLUME 8.5 fL (7.2-11.7); MONO # 0.6 K/uL (0.0-0.8); MONO % 10.3 % (0.0-10.0); NRBC % 0.1 % (0.0-2.0); RED CELL DISTRIBUTION WIDTH 18.1 % (11.5-14.5); WHITE BLOOD COUNT 5.4 K/uL (4.8-10.8)
[2017-02-04] MEDS ORDERED: Albumin Human 25% (12.5 gm/50 ml) IV ONE (21:50)
--- NOTE | 2017-02-04 21:54 | PCM.PROC ---
Procedures Attestation:: I certify that I have explained the specified Operation(s) or Procedure(s), risks, benefits and reasonable alternatives to the Patient and/or other person responsible. The opportunity was given to ask questions and all questions answered - Paracentesis Consent Obtained: written consent Time Out Performed: Yes Indication: Ascites Procedure: therapeutic paracentesis, diagnostic paracentesis Location: RLQ Local Anesthetic Used: lidocaine 1% Procedure: Blank - Time Time Performed: 17:00 - Time Out Time Out: Side verified, Patient ID confirmed, Sterile procedures obs. (patient right lowe quadrant cleaned with beta iodine, patient draped in a sterile fashion) - Procedure Procedure:: Paracentesis was performed on patient's right lower quadrant. 1.5L drained - Performed by: Performed by:: Mid-level provider (Nicole Bolton, DO PGY1) - Indications Indications(s):: ascites, abdominal pain - Contraindications: Contraindications:: coagulopathy (patient had 2 units FFP administered prior to procedure.) - Anesthetic Technique Anesthetic Technique: Local - Topical: Local/Regional Anesthetic:: Lidocaine 1% - Patient Position Patient Position:: Supine (with slight rotation to the right) - Needle Size Needle Size:: 18G to draw lidocaine 24G to administer local anesthetic - Result Result: Other (Patient has more fluid to be withdrawn.) - Post-Procedure Post-procedure:: Vital signs stable (patient stated with a blood pressure of 121 systolic and during the paracentesis, blood pressure was 119/68)
--- NOTE | 2017-02-04 22:03 | CP.PCM.PN ---
<HoangNicole - Last Filed: 02/04/17 23:08> Subjective - Date & Time of Evaluation Date of Evaluation: 02/04/17 Time of Evaluation: 10:30 - Subjective Subjective: Internal Medicine Progress note for Dr. Ibarra Patient seen and examined at bedside. No acute events overnight. Patient had consent for paracentesis by night resident Dr. Moore. 1 unit FFP was ordered for today because INR was not low enough. Patient is aware the procedure is for today. He states he is tolerating abdominal pain. Patient denies fever, chills, nausea, and vomiting. Objective - Vital Signs/Intake and Output Vital Signs (last 24 hours): Temp Pulse Resp BP Pulse Ox 98.1 F 91 H 20 115/67 98 02/04/17 15:00 02/04/17 15:00 02/04/17 15:00 02/04/17 15:00 02/04/17 15:00 - Medications Medications: Current Medications Furosemide (Lasix) 40 mg PO DAILY [facility] Last Admin: 02/04/17 11:54 Dose: 40 mg Piperacillin Sod/Tazobactam (Sod 3.375 gm/ Sodium Chloride) 100 mls @ 200 mls/ hr IVPB Q8 [facility] Last Admin: 02/04/17 14:05 Dose: 200 mls/hr Lactulose (Enulose) 30 gm PO BID [facility] Last Admin: 02/04/17 17:50 Dose: 30 gm Pneumococcal Polyvalent Vaccine (Pneumovax 23 Vaccine) 0.5 ml IM .ONCE ONE Stop: 02/06/17 10:01 Spironolactone (Aldactone) 100 mg PO DAILY [facility] Last Admin: 02/04/17 11:54 Dose: 100 mg - Labs Labs: 02/04/17 11:05 02/04/17 07:33 PT 24.3 SECONDS (9.7-12.2) H 02/04/17 06:25 INR 2.1 02/04/17 06:25 APTT 37 SECONDS (21-34) H 02/04/17 06:25 - Constitutional Appears: Non-toxic - Head Exam Head Exam: NORMAL INSPECTION - Eye Exam Eye Exam: EOMI, Scleral icterus Pupil Exam: NORMAL ACCOMODATION - ENT Exam ENT Exam: Mucous Membranes Moist - Neck Exam Neck Exam: Full ROM - Respiratory Exam Respiratory Exam: NORMAL BREATHING PATTERN. absent: Accessory Muscle Use, Respiratory Distress - Cardiovascular Exam Cardiovascular Exam: REGULAR RHYTHM. absent: Bradycardia, Tachycardia - GI/Abdominal Exam GI & Abdominal Exam: Soft. absent: Tenderness - Extremities Exam Extremities Exam: Pedal Edema Additional comments: patient has pitting edema of lower extremities - Neurological Exam Neurological Exam: Alert, Awake Assessment and Plan - Assessment and Plan (Free Text) Assessment: 02/03 CXR: elevated Right abbey diaphragm 02/03 CT abdomen:cirrhosis, splenomegaly, pancreatic fluid Consult GI: Dr. Sykes 02/03 hepatitis panel negative follow up recommendations Dr. Sykes GI recommended triple phase CT scan of liver in the future as well as EGD to examine for varices Elevated Lipase 2300 f/u lipase AM Cirrhosis 10mg Lasix QD 25mg Aldactone POQD f/u ammonia AM lactulose 30 POBID tonight Albumin 30mg twice, 1 unit FFP, consented 02/03 follow up INR, PTT 02/04 2.1 1 more unit of FFP ordered for 02/04 Paracentesis 1.5 L drained 02/04 follow up orders for cytology, peritoneal albumin, total protein peritoneal fluid, and cell count per GI albumin 30mg ordered post procedure monitor vitals Zosyn 3.375gm Q8H Diet: Clear Liquid Diet Prophylaxis Protonix DVT: SCD Nicole Bolton DO PGY1 <David Ibarra H - Last Filed: 02/05/17 07:29> Objective - Vital Signs/Intake and Output Vital Signs (last 24 hours): Temp Pulse Resp BP Pulse Ox 98.5 F 90 20 128/73 100 02/05/17 00:37 02/05/17 00:37 02/05/17 00:37 02/05/17 00:37 02/05/17 00:37 Intake and Output: 02/05/17 02/05/17 06:59 18:59 Intake Total 340 Balance 340 - Medications Medications: Current Medications Furosemide (Lasix) 40 mg PO DAILY [facility] Last Admin: 02/04/17 11:54 Dose: 40 mg Piperacillin Sod/Tazobactam (Sod 3.375 gm/ Sodium Chloride) 100 mls @ 200 mls/ hr IVPB Q8 [facility] Last Admin: 02/05/17 06:04 Dose: 200 mls/hr Lactulose (Enulose) 30 gm PO BID [facility] Last Admin: 02/04/17 17:50 Dose: 30 gm Pneumococcal Polyvalent Vaccine (Pneumovax 23 Vaccine) 0.5 ml IM .ONCE ONE Stop: 02/06/17 10:01 Spironolactone (Aldactone) 100 mg PO DAILY [facility] Last Admin: 02/04/17 11:54 Dose: 100 mg - Labs Labs: 02/05/17 07:01 02/04/17 07:33 PT 26.3 SECONDS (9.7-12.2) H 02/05/17 07:01 INR 2.3 02/05/17 07:01 APTT 37 SECONDS (21-34) H 02/04/17 06:25 Attending/Attestation - Attestation I have personally seen and examined this patient.: Yes I have fully participated in the care of the patient.: Yes I have reviewed all pertinent clinical information, including history, physical exam and plan: Yes Notes (Text): 02/05/17 07:26 Medical attending: Patient was seen and examined by me. Agree with the above note by the resident The patient's INR decreased to 2.1 after 1 unit of FFP, we ordered another unit of FFP and after this was competed we did paracentesis Only 1.5 Liters was removed. Abdomen was softer. Patient tolerated this well, however probably could use additional paracentesis. The fluid was sent for additional studies such as culture, cytology, ph, albumin , etc Continue on lasix and aldactone Patient had albumin administered before and after the procedure thank you David Ibarra
[2017-02-05] MEDS: Piperacillin/Tazobact 3.375 GM in Sodium Chloride 100 ML IVPB SCH ×3 (06:04→21:28)
--- NOTE | 2017-02-05 06:47 | CP.PCM.PN ---
<Nayeli Roca - Last Filed: 02/05/17 07:04> Subjective - Date & Time of Evaluation Date of Evaluation: 02/05/17 Time of Evaluation: 06:50 - Subjective Subjective: GI Fellow PGY4 Progress Note Pt seen and evaluated at bedside, pt reports feeling better after paracentesis yesterday with 1.5L removed. Pt denies any fevers, chills, abdominal pain, nausea or vomiting. Pt reports 3-4xBM daily. ROS: A 12pt ROS was negative except as above. Objective - Vital Signs/Intake and Output Vital Signs (last 24 hours): Temp Pulse Resp BP Pulse Ox 98.5 F 90 20 128/73 100 02/05/17 00:37 02/05/17 00:37 02/05/17 00:37 02/05/17 00:37 02/05/17 00:37 Intake and Output: 02/04/17 02/05/17 18:59 06:59 Intake Total 340 Balance 340 - Medications Medications: Current Medications Furosemide (Lasix) 40 mg PO DAILY [facility] Last Admin: 02/04/17 11:54 Dose: 40 mg Piperacillin Sod/Tazobactam (Sod 3.375 gm/ Sodium Chloride) 100 mls @ 200 mls/ hr IVPB Q8 [facility] Last Admin: 02/05/17 06:04 Dose: 200 mls/hr Lactulose (Enulose) 30 gm PO BID [facility] Last Admin: 02/04/17 17:50 Dose: 30 gm Pneumococcal Polyvalent Vaccine (Pneumovax 23 Vaccine) 0.5 ml IM .ONCE ONE Stop: 02/06/17 10:01 Spironolactone (Aldactone) 100 mg PO DAILY [facility] Last Admin: 02/04/17 11:54 Dose: 100 mg - Labs Labs: 02/04/17 11:05 02/04/17 07:33 PT 24.3 SECONDS (9.7-12.2) H 02/04/17 06:25 INR 2.1 02/04/17 06:25 APTT 37 SECONDS (21-34) H 02/04/17 06:25 - Constitutional Appears: Non-toxic, No Acute Distress - Head Exam Head Exam: ATRAUMATIC, NORMAL INSPECTION, NORMOCEPHALIC - Eye Exam Eye Exam: EOMI, Scleral icterus Pupil Exam: PERRL - ENT Exam ENT Exam: Mucous Membranes Moist, Normal Exam - Neck Exam Neck Exam: Full ROM, Normal Inspection - Respiratory Exam Respiratory Exam: Decreased Breath Sounds, NORMAL BREATHING PATTERN - Cardiovascular Exam Cardiovascular Exam: RRR, +S1, +S2 - GI/Abdominal Exam GI & Abdominal Exam: Soft, Normal Bowel Sounds. absent: Distended, Tenderness, Organomegaly Additional comments: ascites - Rectal Exam Rectal Exam: Deferred - Extremities Exam Extremities Exam: Full ROM, Pedal Edema - Back Exam Back Exam: NORMAL INSPECTION - Neurological Exam Neurological Exam: Alert, Awake, Oriented x3 - Psychiatric Exam Psychiatric exam: Normal Affect, Normal Mood - Skin Skin Exam: Dry, Intact, Warm Additional comments: jaundice Assessment and Plan - Assessment and Plan (Free Text) Assessment: 41 yM with pmhx of alcohol abuse pw worsening abdominal pain and ascities and LE edema. No prior EGD/colonoscopy. 1. Alcoholic cirrhosis -decompensated 2. Ascities 3. Hx alcohol abuse 4. Jaundice 5. Pancytopenia Plan: -Admission MELD 30, will recalculate today's score after labs -Will order CT Liver protocol -Hepatitis panel, AFP, and autoimmune workup pending -Continue Lasix-recommend lasix 40mg daily and add spironolactone 100mg daily -Diagnostic and therapeutic paracentesis with 1.5L removed, pt may need repeat paracentesis for more fluid removal -Fluid analysis pending peritoneal fluid cell count, albumin, total protein, cx r/o SBP -Continue IV abx -low salt diet -alcohol cessation counselling -will follow clinical course <Igor Sykes - Last Filed: 02/05/17 07:13> Objective - Vital Signs/Intake and Output Vital Signs (last 24 hours): Temp Pulse Resp BP Pulse Ox 98.5 F 90 20 128/73 100 02/05/17 00:37 02/05/17 00:37 02/05/17 00:37 02/05/17 00:37 02/05/17 00:37 Intake and Output: 02/05/17 02/05/17 06:59 18:59 Intake Total 340 Balance 340 - Medications Medications: Current Medications Furosemide (Lasix) 40 mg PO DAILY [facility] Last Admin: 02/04/17 11:54 Dose: 40 mg Piperacillin Sod/Tazobactam (Sod 3.375 gm/ Sodium Chloride) 100 mls @ 200 mls/ hr IVPB Q8 [facility] Last Admin: 02/05/17 06:04 Dose: 200 mls/hr Lactulose (Enulose) 30 gm PO BID [facility] Last Admin: 02/04/17 17:50 Dose: 30 gm Pneumococcal Polyvalent Vaccine (Pneumovax 23 Vaccine) 0.5 ml IM .ONCE ONE Stop: 02/06/17 10:01 Spironolactone (Aldactone) 100 mg PO DAILY [facility] Last Admin: 02/04/17 11:54 Dose: 100 mg - Labs Labs: 02/04/17 11:05 02/04/17 07:33 PT 24.3 SECONDS (9.7-12.2) H 02/04/17 06:25 INR 2.1 02/04/17 06:25 APTT 37 SECONDS (21-34) H 02/04/17 06:25 Attending/Attestation - Attestation I have personally seen and examined this patient.: Yes I have fully participated in the care of the patient.: Yes I have reviewed all pertinent clinical information, including history, physical exam and plan: Yes Notes (Text): 02/05/17 07:09 I have seen and examined patient with GI fellow. No acute events overnight. He underwent paracentesis yesterday with 1.5 liters fluid removed. He denies abdominal pain, nausea, vomiting. Tolerating PO liquids without difficulty. Review of vitals from this morning are normal. Decompensated cirrhosis - suspected ETOH etiology Abdominal pain, distention - ascites s/p paracentesis - Low sodium diet as tolerated - Awaiting ascitic fluid results - Continue with antibiotic therapy for time being - Continue with diuretic regimen, monitor electrolytes - Continue with lactulose for HE prevention, patient currently having appropriate number of daily bowel movements - Obtain triple phase liver CT for evaluation of HCC - Awaiting viral hepatitis panel
[2017-02-05 07:13] LABS: INR 2.3
[2017-02-05 07:16] LABS: BASO # 0.1 K/uL (0.0-0.2); EOS # 0.1 K/uL (0.0-0.7); EOS % 3.6 % (0.0-4.0); HEMATOCRIT 22.8 % (35.0-51.0); LYMPH # 0.9 K/uL (1.0-4.3); LYMPH % 24.7 % (20.0-40.0); MEAN CORPUSCULAR HEMOGLOBIN 33.2 pg (27.0-31.0); MEAN CORPUSCULAR HGB CONC 34.9 g/dL (33.0-37.0); MEAN PLATELET VOLUME 7.7 fL (7.2-11.7); MONO # 0.5 K/uL (0.0-0.8); MONO % 13.9 % (0.0-10.0); RED CELL DISTRIBUTION WIDTH 18.1 % (11.5-14.5); WHITE BLOOD COUNT 3.7 K/uL (4.8-10.8)
[2017-02-05 07:55] LABS: CHLORIDE 101 mmol/L (98-107); POTASSIUM 3.3 mmol/L (3.6-5.2); SODIUM 130 mmol/L (132-148)
[2017-02-05 07:57] LABS: GFR AFRICAN-AMERICAN > 60
[2017-02-05 07:58] LABS: ALB/GLOB RATIO 0.5 (1.0-2.1); ALKALINE PHOSPHATASE 89 U/L (38-126); ALT/SGPT 27 U/L (21-72); AST/SGOT 49 U/L (17-59); BILIRUBIN,TOTAL 6.1 mg/dL (0.2-1.3); BLOOD UREA NITROGEN 6 mg/dL (9-20); CARBON DIOXIDE 20 mmol/L (22-30); GLUCOSE,RANDOM 86 mg/dL (75-110); TOTAL PROTEIN 6.5 g/dL (6.3-8.3)
[2017-02-05 07:59] LABS: CALCIUM 7.7 mg/dl (8.6-10.4)
--- NOTE | 2017-02-05 09:58 | CP.PCM.PN ---
Subjective - Date & Time of Evaluation Date of Evaluation: 02/05/17 Time of Evaluation: 09:45 - Subjective Subjective: Patient was seen and examined by me He explains he felt ok overnight. He tolerated his diet, he had normal BMs with the lactulose he has been getting. He denied fevers and chills. He recieved albumin 12.5g before and afterwards last night. Only 1.5 was able to be removed yesterday via paracentesis. The paracentesis fluid was sent to lab for further analysis. He reports feeling much more comfortable now. Possible more can be removed tommorow. Will give another FFP/Vit K Pending on further work up of liver cirrhosis including a truple phase CT Objective - Vital Signs/Intake and Output Vital Signs (last 24 hours): Temp Pulse Resp BP Pulse Ox 98.5 F 95 H 20 126/77 100 02/05/17 09:22 02/05/17 09:22 02/05/17 09:22 02/05/17 09:22 02/05/17 09:22 Intake and Output: 02/05/17 02/05/17 06:59 18:59 Intake Total 340 Balance 340 - Medications Medications: Current Medications Furosemide (Lasix) 40 mg PO DAILY [facility] Last Admin: 02/05/17 09:02 Dose: 40 mg Piperacillin Sod/Tazobactam (Sod 3.375 gm/ Sodium Chloride) 100 mls @ 200 mls/ hr IVPB Q8 [facility] Last Admin: 02/05/17 06:04 Dose: 200 mls/hr Lactulose (Enulose) 30 gm PO BID [facility] Last Admin: 02/05/17 09:03 Dose: 30 gm Pneumococcal Polyvalent Vaccine (Pneumovax 23 Vaccine) 0.5 ml IM .ONCE ONE Stop: 02/06/17 10:01 Spironolactone (Aldactone) 100 mg PO DAILY [facility] Last Admin: 02/05/17 09:03 Dose: 100 mg - Labs Labs: 02/05/17 07:01 02/05/17 07:01 PT 26.3 SECONDS (9.7-12.2) H 02/05/17 07:01 INR 2.3 02/05/17 07:01 APTT 37 SECONDS (21-34) H 02/04/17 06:25 - Constitutional Appears: No Acute Distress, Chronically Ill - Head Exam Head Exam: NORMAL INSPECTION - Eye Exam Eye Exam: Scleral icterus - ENT Exam ENT Exam: Mucous Membranes Moist - Respiratory Exam Respiratory Exam: Clear to Ausculation Bilateral - Cardiovascular Exam Cardiovascular Exam: REGULAR RHYTHM - GI/Abdominal Exam GI & Abdominal Exam: Distended, Soft. absent: Firm, Guarding, Rigid, Tenderness Additional comments: Distended, the dressing is clean and dry at this time - Extremities Exam Extremities Exam: Pedal Edema - Neurological Exam Neurological Exam: Alert, Awake, Oriented x3 Neuro motor strength exam: Left Upper Extremity: 5, Right Upper Extremity: 5 - Psychiatric Exam Psychiatric exam: Depressed, Flat Affect - Skin Skin Exam: Normal Color, Warm Assessment and Plan - Assessment and Plan (Free Text) Assessment: 1) Liver cirrhosis with ascities - probably ETOH etiology 02/05: Yesterday had 1.5 liters removed. Feels well today. Tolerated diet. Pending paracenteis fluid analysis. He has also had a triple phase CT scan ordered by GI as well. He has been getting albumin as well as lactulose He had an elevated ammonia level when he came however he was not alter mental status when we first started seeing patient. Mental status remains ok today. Continue to monitor. Continue with the lasix and aldactone as well. He would benefit from additional paracentesis/fluid removal. At this time continue on IV abx until cultures of the fluid return thank you David Ibarra
[2017-02-05] MEDS ORDERED: Iodixanol 320 MG/ML 200 ML BOTTLE IV ONE (12:27)
[2017-02-05] MEDS: Potassium Chloride 20 mEq ER Tab PO SCH (12:47)
--- NOTE | 2017-02-05 14:51 | CT ---
PROCEDURE: CT Abdomen with and without intravenous contrast HISTORY: new cirrhosis COMPARISON: Comparison is made to the previous study dated 02/03/2017 TECHNIQUE: Axial images of the abdomen from lung bases to iliac crest with and without intravenous contrast enhancement. Coronal and sagittal reformats generated. Oral contrast also administered. Intravenous contrast Dose: 100 mL Visipaque 320 Radiation dose: Total exam DLP = 2206.11 mGy-cm. This CT exam was performed using one or more of the following dose reduction techniques: Automated exposure control, adjustment of the mA and/or kV according to patient size, and/or use of iterative reconstruction technique. FINDINGS: LOWER THORAX: Trace right pleural effusions seen. Small opacities at the right lung base likely atelectasis. LIVER: Diffuse cirrhotic changes in the liver noted. No evidence of discrete mass lesion in this study. The portal vein is patent. GALLBLADDER AND BILE DUCTS: Partially contracted gallbladder. No evidence of radiodense gallstones or evidence of cholecystitis. PANCREAS: Unremarkable. No gross lesion or ductal dilatation. SPLEEN: Splenomegaly is again noted due to portal hypertension. ADRENALS: Unremarkable. No mass. KIDNEYS AND URETERS: Unremarkable. No hydronephrosis. No solid mass. VASCULATURE: Unremarkable. No aortic aneurysm. BOWEL: Unremarkable. No obstruction. No gross mural thickening. APPENDIX: No evidence of appendicitis PERITONEUM: Again seen is large ascites. No evidence of free air. LYMPH NODES: Unremarkable. No enlarged lymph nodes. BLADDER: The bladder is not included in this study. REPRODUCTIVE: The pelvis and reproductive system is not included in this study. BONES: No acute fracture. OTHER FINDINGS: None. IMPRESSION: Cirrhosis associated is with findings consistent with portal hypertension including large ascites and splenomegaly. No evidence of liver mass. The portal veins are patent. The hepatic veins are not clearly visualized this exam. No CT evidence of pancreatic mass or dilated main pancreatic duct. Mild anasarca.
[2017-02-06] MEDS: Piperacillin/Tazobact 3.375 GM in Sodium Chloride 100 ML IVPB SCH ×2 (06:15→14:12)
--- NOTE | 2017-02-06 07:54 | CP.PCM.PN ---
<Erin Delvalle - Last Filed: 02/06/17 11:07> Subjective - Date & Time of Evaluation Date of Evaluation: 02/06/17 Time of Evaluation: 07:52 - Subjective Subjective: Gastroenterology Fellow/PGY5 Progress Note Patient resting comfortably. Admits to left sided abdominal pain. Tolerating diet. One bowel movement yesterday. Oriented x3. A 12-point review of systems negative except for as above. Objective - Vital Signs/Intake and Output Vital Signs (last 24 hours): Temp Pulse Resp BP Pulse Ox 98.6 F 92 H 20 120/72 96 02/06/17 00:00 02/06/17 00:00 02/06/17 00:00 02/06/17 00:00 02/06/17 00:00 - Medications Medications: Current Medications Furosemide (Lasix) 40 mg PO DAILY [facility] Last Admin: 02/05/17 09:02 Dose: 40 mg Piperacillin Sod/Tazobactam (Sod 3.375 gm/ Sodium Chloride) 100 mls @ 200 mls/ hr IVPB Q8 [facility] Last Admin: 02/06/17 06:15 Dose: 200 mls/hr Lactulose (Enulose) 30 gm PO BID [facility] Last Admin: 02/05/17 17:52 Dose: 30 gm Pneumococcal Polyvalent Vaccine (Pneumovax 23 Vaccine) 0.5 ml IM .ONCE ONE Stop: 02/06/17 10:01 Potassium Chloride (K-Dur 20 Meq Er Tab) 40 meq PO DAILY [facility] Last Admin: 02/05/17 12:47 Dose: 40 meq Spironolactone (Aldactone) 100 mg PO DAILY [facility] Last Admin: 02/05/17 09:03 Dose: 100 mg - Labs Labs: 02/05/17 07:01 02/05/17 07:01 PT 26.3 SECONDS (9.7-12.2) H 02/05/17 07:01 INR 2.3 02/05/17 07:01 APTT 37 SECONDS (21-34) H 02/04/17 06:25 - Constitutional Appears: Non-toxic, No Acute Distress - Head Exam Head Exam: ATRAUMATIC, NORMOCEPHALIC - Eye Exam Eye Exam: EOMI, PERRL Pupil Exam: PERRL. absent: Miosis, Mydriatic - ENT Exam ENT Exam: Mucous Membranes Moist, Normal Oropharynx - Neck Exam Neck Exam: Full ROM, Normal Inspection - Respiratory Exam Respiratory Exam: Clear to Ausculation Bilateral. absent: Rales, Rhonchi, Wheezes - Cardiovascular Exam Cardiovascular Exam: RRR, +S1, +S2. absent: Gallop, Rubs - GI/Abdominal Exam GI & Abdominal Exam: Distended, Soft, Tenderness, Normal Bowel Sounds, Organomegaly. absent: Firm, Guarding, Rigid, Rebound - Extremities Exam Additional comments: 1+ B/L LE pitting edema - Psychiatric Exam Psychiatric exam: Normal Affect, Normal Mood - Skin Skin Exam: Dry, Intact, Normal Color, Warm Assessment and Plan - Assessment and Plan (Free Text) Assessment: 41 year old male with history of Alcohol abuse presenting with abdominal pain/ distension and leg swelling. Active treatment of decompensated alcoholic cirrhosis POD2 (02/04) 1.5L bedside paracentesis. No prior EGD or colonoscopy. Plan: >MELD 30, mDF 71 (02/05) >started day 1 Prednisolone 40mg daily >pending IR evaluation for repeat paracentesis todaywith fluid analysis >pending body fluid culture from 02/04 paracentesis >on Zosyn day 3 for SBP empiric therapy >CT liver protocol- no hepatic mass concerning for HCC >pending hepatitis panel >low salt diet >daily LFTs, INR >alcohol cessation counselling provided >will require elective EGD for variceal screening >will follow clinical course <Abigail DOYLE,Vinny - Last Filed: 02/06/17 15:20> Objective - Vital Signs/Intake and Output Vital Signs (last 24 hours): Temp Pulse Resp BP Pulse Ox 98.1 F 94 H 20 113/62 95 02/06/17 08:30 02/06/17 08:30 02/06/17 08:30 02/06/17 10:31 02/06/17 08:30 Intake and Output: 02/06/17 02/06/17 06:59 18:59 Intake Total 250 Balance 250 - Medications Medications: Current Medications Furosemide (Lasix) 40 mg PO DAILY [facility] Last Admin: 02/06/17 10:31 Dose: 40 mg Piperacillin Sod/Tazobactam Sod (Zosyn 3.375 Gm Iv Premix) 3.375 gm in 50 mls @ 100 mls/hr IVPB Q8 [facility] Lactulose (Enulose) 30 gm PO BID [facility] Last Admin: 02/06/17 10:30 Dose: 30 gm Potassium Chloride (K-Dur 20 Meq Er Tab) 40 meq PO DAILY [facility] Last Admin: 02/06/17 10:31 Dose: 40 meq Prednisolone (Prednisolone) 40 mg PO DAILY [facility] Last Admin: 02/06/17 10:32 Dose: 40 mg Spironolactone (Aldactone) 100 mg PO DAILY [facility] Last Admin: 02/06/17 10:31 Dose: 100 mg - Labs Labs: 02/06/17 08:19 02/06/17 08:19 PT 27.9 SECONDS (9.7-12.2) H 02/06/17 11:44 INR 2.4 02/06/17 11:44 APTT 37 SECONDS (21-34) H 02/04/17 06:25 Attending/Attestation - Attestation I have personally seen and examined this patient.: Yes I have fully participated in the care of the patient.: Yes I have reviewed all pertinent clinical information, including history, physical exam and plan: Yes Notes (Text): 02/06/17 15:17 patient seen and examined at bedside this am. This is a 41 year old male with history of alcohol abuse presenting with new onset ascites s/p 1.5 lt bedside paracentesis. No prior EGD or colonoscopy. Biochemical evidence of alcoholic hepatitis with MDF 71, MELD 30. Start Prednisolone [address] liver protocol- no hepatic mass concerning for HCC. Hepatitis and autoimmune panel pending. Daily MELD labs. Alcohol cessation. Needs elective EGD for variceal screening
[2017-02-06 08:32] LABS: BASO # 0.1 K/uL (0.0-0.2); EOS # 0.2 K/uL (0.0-0.7); EOS % 6.2 % (0.0-4.0); HEMATOCRIT 22.2 % (35.0-51.0); LYMPH % 29.6 % (20.0-40.0); MEAN CELL VOLUME 95.8 fL (80.0-94.0); MEAN CORPUSCULAR HEMOGLOBIN 33.3 pg (27.0-31.0); MEAN CORPUSCULAR HGB CONC 34.8 g/dL (33.0-37.0); MEAN PLATELET VOLUME 7.4 fL (7.2-11.7); MONO # 0.6 K/uL (0.0-0.8); MONO % 17.2 % (0.0-10.0); NRBC % 0.1 % (0.0-2.0); RED CELL DISTRIBUTION WIDTH 18.1 % (11.5-14.5); WHITE BLOOD COUNT 3.4 K/uL (4.8-10.8)
[2017-02-06 08:50] LABS: CHLORIDE 102 mmol/L (98-107); POTASSIUM 3.8 mmol/L (3.6-5.2); SODIUM 132 mmol/L (132-148)
[2017-02-06 08:53] LABS: ALB/GLOB RATIO 0.6 (1.0-2.1); ALKALINE PHOSPHATASE 95 U/L (38-126); ALT/SGPT 27 U/L (21-72); AST/SGOT 51 U/L (17-59); BILIRUBIN,TOTAL 5.3 mg/dL (0.2-1.3); BLOOD UREA NITROGEN 7 mg/dL (9-20); CARBON DIOXIDE 23 mmol/L (22-30); GFR AFRICAN-AMERICAN > 60; GLUCOSE,RANDOM 93 mg/dL (75-110); TOTAL PROTEIN 6.2 g/dL (6.3-8.3)
[2017-02-06 08:54] LABS: CALCIUM 7.5 mg/dl (8.6-10.4)
[2017-02-06] MEDS ORDERED: Influenza Vaccine 60 mcg/0.5 mL SYR (4YR UP) IM ONE (10:00)
[2017-02-06] MEDS ORDERED: Pneumococcal 23-Valent Vaccine IM ONE (10:00)
[2017-02-06] MEDS: Potassium Chloride 20 mEq ER Tab PO SCH (10:31)
[2017-02-06] MEDS: PrednisoLONE 6 MG/2 ML SYR PO SCH (10:32)
[2017-02-06 11:56] LABS: INR 2.4
[2017-02-06 15:18] LABS: BODY FLUID TYPE PERITONEAL
--- NOTE | 2017-02-06 15:56 | CP.PCM.PN ---
<Ranjeet Dos Santos - Last Filed: 02/06/17 20:10> Objective - Vital Signs/Intake and Output Vital Signs (last 24 hours): Temp Pulse Resp BP Pulse Ox 98.1 F 94 H 20 113/62 95 02/06/17 08:30 02/06/17 08:30 02/06/17 08:30 02/06/17 10:31 02/06/17 08:30 Intake and Output: 02/06/17 02/06/17 06:59 18:59 Intake Total 250 Balance 250 - Medications Medications: Current Medications Furosemide (Lasix) 40 mg PO DAILY [facility] Last Admin: 02/06/17 10:31 Dose: 40 mg Piperacillin Sod/Tazobactam Sod (Zosyn 3.375 Gm Iv Premix) 3.375 gm in 50 mls @ 100 mls/hr IVPB Q8 [facility] Lactulose (Enulose) 30 gm PO BID [facility] Last Admin: 02/06/17 10:30 Dose: 30 gm Potassium Chloride (K-Dur 20 Meq Er Tab) 40 meq PO DAILY [facility] Last Admin: 02/06/17 10:31 Dose: 40 meq Prednisolone (Prednisolone) 40 mg PO DAILY [facility] Last Admin: 02/06/17 10:32 Dose: 40 mg Spironolactone (Aldactone) 100 mg PO DAILY [facility] Last Admin: 02/06/17 10:31 Dose: 100 mg - Labs Labs: 02/06/17 08:19 02/06/17 08:19 PT 27.9 SECONDS (9.7-12.2) H 02/06/17 11:44 INR 2.4 02/06/17 11:44 APTT 37 SECONDS (21-34) H 02/04/17 06:25 Attending/Attestation - Attestation I have personally seen and examined this patient.: Yes I have fully participated in the care of the patient.: Yes I have reviewed all pertinent clinical information, including history, physical exam and plan: Yes Notes (Text): 02/06/17 16:12 This is 41years old male came to hospital for abdominal distension.He has history of alcohol abuse.He has no fever,no abdominal pain no leukocytosis.s/p paracentesis and 1.5l fluid taken.Gram stain without polymorphs. Fluid cutlure pending.on examination he has significant ascites need additional paracentesis. 1. Liver cirrhosis CT liver consistent with cirrhosis.no mass Hepatitis profile negative.Its is alcohol induced.started on oral prednisone D/W Incident Response Manager.He will need an EGD for variceal screening 2.Ascites continue lasix,aldactone and lactulose.Amonia level is down.Continue Zosyn for empiric SBP.follow fluid culture.Discussed with Dr Ayala /IR.Paracentesis tomorrow.Will give FFP in the morning before procedure.Give vit k tonight. <Kevon Moore - Last Filed: 02/06/17 21:23> Subjective - Date & Time of Evaluation Date of Evaluation: 02/06/17 Time of Evaluation: 07:45 - Subjective Subjective: PGY1 Medicine Note for Dr. Dos Santos Patient seen and examined this morning at bedside. Patient states that he is feeling well. He reports only mild abdominal pain at this time. He was able to tolerate his diet with no complaints. Objective - Vital Signs/Intake and Output Vital Signs (last 24 hours): Temp Pulse Resp BP Pulse Ox 98.1 F 94 H 20 113/62 95 02/06/17 08:30 02/06/17 08:30 02/06/17 08:30 02/06/17 10:31 02/06/17 08:30 Intake and Output: 02/06/17 02/06/17 06:59 18:59 Intake Total 250 Balance 250 - Medications Medications: Current Medications Furosemide (Lasix) 40 mg PO DAILY [facility] Last Admin: 02/06/17 10:31 Dose: 40 mg Piperacillin Sod/Tazobactam Sod (Zosyn 3.375 Gm Iv Premix) 3.375 gm in 50 mls @ 100 mls/hr IVPB Q8 [facility] Lactulose (Enulose) 30 gm PO BID [facility] Last Admin: 02/06/17 10:30 Dose: 30 gm Potassium Chloride (K-Dur 20 Meq Er Tab) 40 meq PO DAILY [facility] Last Admin: 02/06/17 10:31 Dose: 40 meq Prednisolone (Prednisolone) 40 mg PO DAILY [facility] Last Admin: 02/06/17 10:32 Dose: 40 mg Spironolactone (Aldactone) 100 mg PO DAILY [facility] Last Admin: 02/06/17 10:31 Dose: 100 mg - Labs Labs: 02/06/17 08:19 02/06/17 08:19 PT 27.9 SECONDS (9.7-12.2) H 02/06/17 11:44 INR 2.4 02/06/17 11:44 APTT 37 SECONDS (21-34) H 02/04/17 06:25 - Constitutional Appears: No Acute Distress, Chronically Ill - Head Exam Head Exam: ATRAUMATIC, NORMOCEPHALIC - Eye Exam Eye Exam: Scleral icterus - Respiratory Exam Respiratory Exam: Clear to Ausculation Bilateral, NORMAL BREATHING PATTERN. absent: Accessory Muscle Use, Rales, Respiratory Distress - Cardiovascular Exam Cardiovascular Exam: REGULAR RHYTHM, +S1 - GI/Abdominal Exam GI & Abdominal Exam: Distended, Soft. absent: Firm, Guarding, Rigid (+fluid wave, dressing is c/d/i) - Extremities Exam Extremities Exam: Pedal Edema (trace) - Neurological Exam Neurological Exam: Alert, Awake, Oriented x3 - Psychiatric Exam Psychiatric exam: Depressed - Skin Skin Exam: Dry, Warm. absent: Normal Color (yellow) Assessment and Plan - Assessment and Plan (Free Text) Plan: 1) Liver cirrhosis with ascities - probably ETOH etiology 02/05: Yesterday had 1.5 liters removed. Feels well today. Tolerated diet. Pending paracenteis fluid analysis. He has also had a triple phase CT scan ordered by GI as well. He has been getting albumin as well as lactulose He had an elevated ammonia level when he came however he was not alter mental status when we first started seeing patient. Mental status remains ok today. Continue to monitor. Continue with the lasix and aldactone Patient is scheduled for paracentesis tomorrow. Will order 1 unit of FFP to be given in the morning. f/u INR Case discussed with Dr. Raya Lund Oscar PGY1
[2017-02-06 15:58] LABS: BF GROSS APPEARANCE SL CLOUDY (CLEAR)
[2017-02-06] MEDS ORDERED: Phytonadione 2.5 MG/0.5 TAB TAB PO ONE (17:07)
[2017-02-06 21:58] LABS: INR 2.3
[2017-02-06] MEDS: Piperacill/Tazo 3.375gm in Dex 3.375 GM/50 ML BAG IVPB SCH (22:04)
[2017-02-07] MEDS: Piperacill/Tazo 3.375gm in Dex 3.375 GM/50 ML BAG IVPB SCH ×2 (05:29→14:00)
--- NOTE | 2017-02-07 06:19 | CP.PCM.PN ---
<Erin Delvalle - Last Filed: 02/07/17 09:08> Subjective - Date & Time of Evaluation Date of Evaluation: 02/07/17 Time of Evaluation: 06:17 - Subjective Subjective: Gastroenterology Fellow/PGY5 Progress Note Patient resting comfortably with periods of confusion. Tolerating diet. Three bowel movements yesterday. A 12-point review of systems negative except for as above. Objective - Vital Signs/Intake and Output Vital Signs (last 24 hours): Temp Pulse Resp BP Pulse Ox 98.1 F 96 H 20 122/74 97 02/06/17 23:59 02/06/17 23:59 02/06/17 23:59 02/06/17 23:59 02/06/17 23:59 Intake and Output: 02/06/17 02/07/17 18:59 06:59 Intake Total 850 450 Balance 850 450 - Medications Medications: Current Medications Furosemide (Lasix) 40 mg PO DAILY [facility] Last Admin: 02/06/17 10:31 Dose: 40 mg Piperacillin Sod/Tazobactam Sod (Zosyn 3.375 Gm Iv Premix) 3.375 gm in 50 mls @ 100 mls/hr IVPB Q8 [facility] Last Admin: 02/07/17 05:29 Dose: 100 mls/hr Lactulose (Enulose) 30 gm PO BID [facility] Last Admin: 02/06/17 17:55 Dose: 30 gm Potassium Chloride (K-Dur 20 Meq Er Tab) 40 meq PO DAILY [facility] Last Admin: 02/06/17 10:31 Dose: 40 meq Prednisolone (Prednisolone) 40 mg PO DAILY [facility] Last Admin: 02/06/17 10:32 Dose: 40 mg Spironolactone (Aldactone) 100 mg PO DAILY [facility] Last Admin: 02/06/17 10:31 Dose: 100 mg - Labs Labs: 02/06/17 08:19 02/06/17 08:19 PT 27.1 SECONDS (9.7-12.2) H 02/06/17 21:48 INR 2.3 02/06/17 21:48 APTT 37 SECONDS (21-34) H 02/04/17 06:25 - Constitutional Appears: Non-toxic, No Acute Distress - Head Exam Head Exam: ATRAUMATIC, NORMOCEPHALIC - Eye Exam Eye Exam: EOMI, PERRL, Scleral icterus Pupil Exam: PERRL. absent: Miosis, Mydriatic - ENT Exam ENT Exam: Mucous Membranes Moist, Normal Oropharynx - Neck Exam Neck Exam: Full ROM, Normal Inspection - Respiratory Exam Respiratory Exam: Clear to Ausculation Bilateral. absent: Rales, Rhonchi, Wheezes - Cardiovascular Exam Cardiovascular Exam: RRR, +S1, +S2. absent: Gallop, Rubs - GI/Abdominal Exam GI & Abdominal Exam: Distended, Soft, Tenderness, Normal Bowel Sounds, Rebound. absent: Firm, Guarding, Rigid, Organomegaly - Extremities Exam Additional comments: 1+ B/L LE pitting edema - Neurological Exam Neurological Exam: Alert, Awake - Psychiatric Exam Psychiatric exam: Normal Affect, Normal Mood - Skin Skin Exam: Dry, Intact, Normal Color, Warm Assessment and Plan - Assessment and Plan (Free Text) Assessment: 41 year old male with history of Alcohol abuse presenting with abdominal pain/ distension and leg swelling. Active treatment of alcoholic hepatitis and decompensated alcoholic cirrhosis POD3 (02/04) 1.5L bedside paracentesis (no SBP) . No prior EGD or colonoscopy. Plan: >MELD 27, mDF 76.3 >continue day 2 Prednisolone 40mg daily >repeat paracentesis today with fluid analysis >received FFP and vitamin K for coagulopathy >recommend stopping Zosyn- no SBP on ascites fluid analysis >provide albumin replacement if large volume paracentesis (>5L) today >CT liver protocol- no hepatic mass concerning for HCC >negative hepatitis panel >low salt diet >alcohol cessation counselling provided >will require elective outpatient EGD for variceal screening >on discharge-continue diuresis to reduce portal hypertension, prednisolone for alcholic hepatitis, and lactulose for hepatic encephalopathy >counselled on outpatient follow up with [facility] for ongoing outpatient management of cirrhosis <Igor Sykes - Last Filed: 02/07/17 14:56> Objective - Vital Signs/Intake and Output Vital Signs (last 24 hours): Temp Pulse Resp BP Pulse Ox 98.3 F 91 H 20 120/69 97 02/07/17 07:23 02/07/17 07:23 02/07/17 07:23 02/07/17 11:27 02/07/17 07:23 Intake and Output: 02/07/17 02/07/17 06:59 18:59 Intake Total 450 Balance 450 - Medications Medications: Current Medications Furosemide (Lasix) 40 mg PO DAILY [facility] Last Admin: 02/07/17 11:27 Dose: 40 mg Lactulose (Enulose) 30 gm PO BID [facility] Last Admin: 02/07/17 11:28 Dose: 30 gm Potassium Chloride (K-Dur 20 Meq Er Tab) 40 meq PO DAILY [facility] Last Admin: 02/07/17 11:28 Dose: 40 meq Prednisolone (Prednisolone) 40 mg PO DAILY [facility] Last Admin: 02/07/17 11:28 Dose: 40 mg Spironolactone (Aldactone) 100 mg PO DAILY [facility] Last Admin: 02/07/17 11:28 Dose: 100 mg - Labs Labs: 02/07/17 07:16 02/07/17 07:16 PT 25.1 SECONDS (9.7-12.2) H 02/07/17 14:06 INR 2.1 02/07/17 14:06 APTT 37 SECONDS (21-34) H 02/04/17 06:25 Attending/Attestation - Attestation I have personally seen and examined this patient.: Yes I have fully participated in the care of the patient.: Yes I have reviewed all pertinent clinical information, including history, physical exam and plan: Yes Notes (Text): 02/07/17 14:53 I have seen and examined patient with GI fellow. No acute events overnight, patient is seen resting in bed eating breakfast and appears comfortable. He denies abdominal pain, nausea, vomiting, fever/chills. Decompensated ETOH cirrhosis Abdominal pain, ascites - no presence of SBP on fluid analysis - Low sodium diet as tolerated - Patient to undergo repeat paracentesis today, may require albumin replacement therapy depending on how much fluid is removed - CT liver, triple phase reviewed by me showing no focal hepatic lesions - Continue with diuretic therapy, monitor electrolytes - Continue with prednisolone therapy for management of acute ETOH hepatitis with elevated DF, will require outpatient taper - Continue with lactulose for HE prevention - ETOH cessation counseling - No ongoing planned GI intervention, will sign off case. He would benefit from elective outpatient EGD for variceal screening. Please reconsult as necessary, thank you.
[2017-02-07 07:30] LABS: INR 2.4
[2017-02-07 07:44] LABS: EOS # 0.1 K/uL (0.0-0.7); MEAN PLATELET VOLUME 7.6 fL (7.2-11.7); RED CELL DISTRIBUTION WIDTH 18.5 % (11.5-14.5)
[2017-02-07 07:46] LABS: CHLORIDE 100 mmol/L (98-107); SODIUM 130 mmol/L (132-148)
[2017-02-07 07:48] LABS: ALB/GLOB RATIO 0.5 (1.0-2.1); AST/SGOT 44 U/L (17-59); BILIRUBIN,TOTAL 5.5 mg/dL (0.2-1.3); CARBON DIOXIDE 21 mmol/L (22-30); GFR AFRICAN-AMERICAN > 60; TOTAL PROTEIN 6.6 g/dL (6.3-8.3)
[2017-02-07 07:49] LABS: ALKALINE PHOSPHATASE 115 U/L (38-126); ALT/SGPT 27 U/L (21-72); BASO % 0.6 % (0.0-2.0); BLOOD UREA NITROGEN 8 mg/dL (9-20); GLUCOSE,RANDOM 113 mg/dL (75-110); HEMATOCRIT 23.7 % (35.0-51.0); LYMPH # 0.9 K/uL (1.0-4.3); LYMPH % 10.6 % (20.0-40.0); MEAN CELL VOLUME 95.3 fL (80.0-94.0); MEAN CORPUSCULAR HGB CONC 34.7 g/dL (33.0-37.0); MONO # 0.9 K/uL (0.0-0.8); MONO % 10.5 % (0.0-10.0)
[2017-02-07 07:50] LABS: WHITE BLOOD COUNT 7.5 K/uL (4.8-10.8)
[2017-02-07] MEDS: PrednisoLONE 6 MG/2 ML SYR PO SCH (11:28)
[2017-02-07] MEDS: Potassium Chloride 20 mEq ER Tab PO SCH (11:28)
[2017-02-07 14:21] LABS: INR 2.1
--- NOTE | 2017-02-07 14:33 | CP.PCM.PN ---
<Manuel Case R - Last Filed: 02/07/17 14:30> Subjective - Date & Time of Evaluation Date of Evaluation: 02/07/17 Time of Evaluation: 14:30 - Subjective Subjective: Patient was seen and examined at bedside. He was lying comfortably in bed. He did not have complaints. He said he tolerated his paracentesis procedure well and feels better now. He denied chest pain, abdominal pain, dysuria, pain in his legs, vomiting, diarrhea, fever, chills. Objective - Vital Signs/Intake and Output Vital Signs (last 24 hours): Temp Pulse Resp BP Pulse Ox 98.3 F 91 H 20 120/69 97 02/07/17 07:23 02/07/17 07:23 02/07/17 07:23 02/07/17 11:27 02/07/17 07:23 Intake and Output: 02/07/17 02/07/17 06:59 18:59 Intake Total 450 Balance 450 - Medications Medications: Current Medications Furosemide (Lasix) 40 mg PO DAILY [facility] Last Admin: 02/07/17 11:27 Dose: 40 mg Piperacillin Sod/Tazobactam Sod (Zosyn 3.375 Gm Iv Premix) 3.375 gm in 50 mls @ 100 mls/hr IVPB Q8 [facility] Last Admin: 02/07/17 14:00 Dose: 100 mls/hr Lactulose (Enulose) 30 gm PO BID [facility] Last Admin: 02/07/17 11:28 Dose: 30 gm Potassium Chloride (K-Dur 20 Meq Er Tab) 40 meq PO DAILY [facility] Last Admin: 02/07/17 11:28 Dose: 40 meq Prednisolone (Prednisolone) 40 mg PO DAILY [facility] Last Admin: 02/07/17 11:28 Dose: 40 mg Spironolactone (Aldactone) 100 mg PO DAILY [facility] Last Admin: 02/07/17 11:28 Dose: 100 mg - Labs Labs: 02/07/17 07:16 02/07/17 07:16 PT 25.1 SECONDS (9.7-12.2) H 02/07/17 14:06 INR 2.1 02/07/17 14:06 APTT 37 SECONDS (21-34) H 02/04/17 06:25 - Constitutional Appears: Well, No Acute Distress - Head Exam Head Exam: ATRAUMATIC, NORMAL INSPECTION - Eye Exam Eye Exam: EOMI Pupil Exam: PERRL - ENT Exam ENT Exam: Mucous Membranes Moist - Neck Exam Neck Exam: Full ROM - Respiratory Exam Respiratory Exam: Clear to Ausculation Bilateral, NORMAL BREATHING PATTERN. absent: Rales, Wheezes - Cardiovascular Exam Cardiovascular Exam: REGULAR RHYTHM, +S1, +S2. absent: Bradycardia, Tachycardia - GI/Abdominal Exam GI & Abdominal Exam: Distended, Diminished Bowel Sounds. absent: Tenderness, Organomegaly Additional comments: +fluid wave, dressing is c/d/i - Rectal Exam Rectal Exam: Deferred - Extremities Exam Extremities Exam: Pedal Edema - Neurological Exam Neurological Exam: Alert, Awake, Oriented x3 - Psychiatric Exam Psychiatric exam: Normal Affect, Normal Mood - Skin Skin Exam: Dry, Intact, Normal Color, Warm Assessment and Plan - Assessment and Plan (Free Text) Assessment: 1) Liver cirrhosis with ascities - probably ETOH etiology GI consulted, Dr Sykes IR consulted, Dr Ayala Meld 27 mDF 76.3 02/07/17 order for second paracentesis put in today. patient is POD3 paracentesis with 1.5L removed. continue prednisolone 40mg qd CT liver protocol - no hepatic mass concerning for HCC received FFP and vitamin K for coagulopathy negative hepatitis panel albumin replacement if large volume paracentesis (>5L) zosyn stopped today 02/07/17 as no SBP on fluid analysis and blood, fluid, and urine cultures negative continue lasix 40mg po qd, lactulose 30g po bid, potassium 40 meq po qd low salt diet. alcohol cessation counseling provided. As per GI, will require elective outpatient EGD for variceal screening. And on discharge, con't diuresis to reduce portal hypertension, prednisolone for alcoholic hepatitis, and lactulose for hepatic encephalopathy. Will also need to follow up with welding production supervisor for ongoing outpatient mangaement of cirrhosis. Case discussed with Dr. Dos Santos <Ranjeet Dos Santos - Last Filed: 02/07/17 18:21> Objective - Vital Signs/Intake and Output Vital Signs (last 24 hours): Temp Pulse Resp BP Pulse Ox 98.4 F 93 H 20 125/74 97 02/07/17 15:00 02/07/17 15:00 02/07/17 15:00 02/07/17 15:00 02/07/17 15:00 Intake and Output: 02/07/17 02/07/17 06:59 18:59 Intake Total 450 Balance 450 - Medications Medications: Current Medications Furosemide (Lasix) 40 mg PO DAILY [facility] Last Admin: 02/07/17 11:27 Dose: 40 mg Lactulose (Enulose) 30 gm PO BID [facility] Last Admin: 02/07/17 18:08 Dose: 30 gm Phytonadione (Vitamin K Tab) 10 mg PO ONCE ONE Stop: 02/08/17 18:06 Potassium Chloride (K-Dur 20 Meq Er Tab) 40 meq PO DAILY [facility] Last Admin: 02/07/17 11:28 Dose: 40 meq Prednisolone (Prednisolone) 40 mg PO DAILY [facility] Last Admin: 02/07/17 11:28 Dose: 40 mg Spironolactone (Aldactone) 100 mg PO DAILY [facility] Last Admin: 02/07/17 11:28 Dose: 100 mg - Labs Labs: 02/07/17 07:16 02/07/17 07:16 PT 25.1 SECONDS (9.7-12.2) H 02/07/17 14:06 INR 2.1 02/07/17 14:06 APTT 37 SECONDS (21-34) H 02/04/17 06:25 Attending/Attestation - Attestation I have personally seen and examined this patient.: Yes I have fully participated in the care of the patient.: Yes I have reviewed all pertinent clinical information, including history, physical exam and plan: Yes Notes (Text): Patient was seen and examined today with resident.He denies abdominal pain,no fever,no SOB This is 41years old male came to hospital for abdominal distension.He has history of alcohol abuse. CT liver consistent with cirrhosis.no mass Hepatitis profile negative.Its is alcohol induced.started on oral prednisone He will need an EGD for variceal screening as an out pt.He has no fever,no abdominal pain no leukocytosis.s/p paracentesis and 1.5l fluid taken.Gram stain without polymorphs. Fluid cutlure negative off zosyn 1. Liver cirrhosis s/p Vit K last night and FFP this morning.Has high INR we will give vitk 10mg tonight and FFP in the morning for paracentesis tomorrow for repeat paracentesis ,s/p paracentesis with 1.5L removed. continue prednisolone 40mg qd albumin replacement if large volume paracentesis (>5L) zosyn stopped today 02/07/17 as no SBP on fluid analysis and blood, fluid, and urine cultures negative continue lasix 40mg po qd, lactulose 30g po bid, potassium 40 meq po qd low salt diet. alcohol cessation counseling provided. As per GI, will require elective outpatient EGD for variceal screening. And on discharge, con't diuresis to reduce portal hypertension, prednisolone for alcoholic hepatitis, and lactulose for hepatic encephalopathy. need to follow up with welding production supervisor for ongoing outpatient mangaement of cirrhosis.Plan discussed with patient.GI follow up noted
[2017-02-08 06:45] LABS: BASO % 0.4 % (0.0-2.0); EOS % 0.5 % (0.0-4.0); HEMATOCRIT 22.2 % (35.0-51.0); LYMPH # 0.8 K/uL (1.0-4.3); LYMPH % 8.3 % (20.0-40.0); MEAN CELL VOLUME 96.7 fL (80.0-94.0); MEAN CORPUSCULAR HGB CONC 35.1 g/dL (33.0-37.0); MEAN PLATELET VOLUME 7.5 fL (7.2-11.7); MONO % 10.7 % (0.0-10.0); PLATELET COUNT 94 K/uL (130-400); WHITE BLOOD COUNT 9.7 K/uL (4.8-10.8)
[2017-02-08 06:55] LABS: CHLORIDE 101 mmol/L (98-107)
[2017-02-08 06:56] LABS: POTASSIUM 4.1 mmol/L (3.6-5.2); SODIUM 134 mmol/L (132-148)
[2017-02-08 06:58] LABS: AST/SGOT 41 U/L (17-59); BILIRUBIN,TOTAL 5.3 mg/dL (0.2-1.3); CARBON DIOXIDE 22 mmol/L (22-30); GFR AFRICAN-AMERICAN > 60
[2017-02-08 06:59] LABS: ALB/GLOB RATIO 0.5 (1.0-2.1); ALKALINE PHOSPHATASE 132 U/L (38-126); ALT/SGPT 33 U/L (21-72); BLOOD UREA NITROGEN 8 mg/dL (9-20); CALCIUM 8.4 mg/dl (8.6-10.4); GLUCOSE,RANDOM 115 mg/dL (75-110)
[2017-02-08 07:01] VITALS: O2SAT 98
[2017-02-08 09:05] LABS: MYELOCYTE 1 % (0-0); NEUTROPHIL 83 % (50-75); TOTAL CELLS COUNTED 100
[2017-02-08] MEDS: PrednisoLONE 6 MG/2 ML SYR PO SCH (10:06)
[2017-02-08] MEDS: Potassium Chloride 20 mEq ER Tab PO SCH (10:07)
[2017-02-08 12:03] LABS: INR 2.1
[2017-02-08 16:16] VITALS: BP 135/78; PULSE 95; RESP 20; TEMP 98
--- NOTE | 2017-02-08 19:54 | CP.PCM.DIS ---
<Kevon Moore - Last Filed: 02/08/17 19:53> Provider - Provider Date of Admission: 02/03/17 16:49 Attending physician: Ranjeet Dos Santos MD Time Spent in preparation of Discharge (in minutes): 20 Hospital Course - Lab Results Lab Results: Micro Results 02/04/17 16:37 Ascitic Fluid Gram Stain - Final 02/04/17 16:37 Ascitic Fluid Body Fluid Culture - Preliminary NO GROWTH AFTER 3 DAYS 02/04/17 10:55 Blood-Venous Blood Culture - Preliminary NO GROWTH AFTER 4 DAYS 02/04/17 11:25 Blood-Venous Blood Culture - Preliminary NO GROWTH AFTER 3 DAYS 02/03/17 11:26 Urine Urine Culture - Final No Growth (<1,000 CFU/ML) Most Recent Lab Values WBC 9.7 K/uL (4.8-10.8) 02/08/17 06:23 RBC 2.30 Mil/uL (4.40-5.90) L 02/08/17 06:23 Hgb 7.8 g/dL (12.0-18.0) L 02/08/17 06:23 Hct 22.2 % (35.0-51.0) L 02/08/17 06:23 MCV 96.7 fL (80.0-94.0) H 02/08/17 06:23 MCH 34.0 pg (27.0-31.0) H 02/08/17 06:23 MCHC 35.1 g/dL (33.0-37.0) 02/08/17 06:23 RDW 19.0 % (11.5-14.5) H 02/08/17 06:23 Plt Count 94 K/uL (130-400) L 02/08/17 06:23 MPV 7.5 fL (7.2-11.7) 02/08/17 06:23 Neut % (Auto) 80.1 % (50.0-75.0) H 02/08/17 06:23 Lymph % (Auto) 8.3 % (20.0-40.0) L 02/08/17 06:23 Sabine % (Auto) 10.7 % (0.0-10.0) H 02/08/17 06:23 Eos % (Auto) 0.5 % (0.0-4.0) 02/08/17 06:23 Baso % (Auto) 0.4 % (0.0-2.0) 02/08/17 06:23 Neut # 7.8 K/uL (1.8-7.0) H 02/08/17 06:23 Lymph # 0.8 K/uL (1.0-4.3) L 02/08/17 06:23 Sabine # 1.0 K/uL (0.0-0.8) H 02/08/17 06:23 Eos # 0.0 K/uL (0.0-0.7) 02/08/17 06:23 Baso # 0.0 K/uL (0.0-0.2) 02/08/17 06:23 Neutrophils % (Manual) 83 % (50-75) H 02/08/17 06:23 Band Neutrophils % 1 % (0-2) 02/08/17 06:23 Lymphocytes % (Manual) 6 % (20-40) L 02/08/17 06:23 Monocytes % (Manual) 9 % (0-10) 02/08/17 06:23 Myelocytes % 1 % (0-0) H 02/08/17 06:23 Differential Comment 02/05/17 07:01 Toxic Granulation Present 02/08/17 06:23 Platelet Estimate Decreased (NORMAL) L 02/08/17 06:23 Hypochromasia (manual) Moderate 02/08/17 06:23 Poikilocytosis (manual Slight 02/08/17 06:23 Anisocytosis (manual) Slight 02/08/17 06:23 Target Cells Slight 02/08/17 06:23 Ovalocytes Slight 02/08/17 06:23 Simpson Cells Slight 02/08/17 06:23 PT 24.1 SECONDS (9.7-12.2) H 02/08/17 11:55 INR 2.1 02/08/17 11:55 APTT 37 SECONDS (21-34) H 02/04/17 06:25 Sodium 134 mmol/L (132-148) 02/08/17 06:23 Potassium 4.1 mmol/L (3.6-5.2) 02/08/17 06:23 Chloride 101 mmol/L (98-107) 02/08/17 06:23 Carbon Dioxide 22 mmol/L (22-30) 02/08/17 06:23 Anion Gap 15 (10-20) 02/08/17 06:23 BUN 8 mg/dL (9-20) L 02/08/17 06:23 Creatinine 0.7 mg/dL (0.8-1.5) L 02/08/17 06:23 Est GFR ( Amer) > 60 02/08/17 06:23 Est GFR (Non-Af Amer) > 60 02/08/17 06:23 Random Glucose 115 mg/dL (75-110) H 02/08/17 06:23 Calcium 8.4 mg/dl (8.6-10.4) L 02/08/17 06:23 Total Bilirubin 5.3 mg/dL (0.2-1.3) H 02/08/17 06:23 AST 41 U/L (17-59) 02/08/17 06:23 ALT 33 U/L (21-72) 02/08/17 06:23 Alkaline Phosphatase 132 U/L (38-126) H 02/08/17 06:23 Ammonia 23 umol/L (9-33) D 02/04/17 07:33 Total Protein 7.0 g/dL (6.3-8.3) 02/08/17 06:23 Albumin 2.4 g/dL (3.5-5.0) L 02/08/17 06:23 Globulin 4.5 gm/dL (2.2-3.9) H 02/08/17 06:23 Albumin/Globulin Ratio 0.5 (1.0-2.1) L 02/08/17 06:23 Lipase 266 U/L (23-300) 02/04/17 07:33 Alpha Fetoprotein 2.7 ng/mL (0.0-7.5) 02/04/17 11:03 Urine Color [place] (YELLOW) 02/03/17 11:55 Urine Clarity Clear (Clear) 02/03/17 11:55 Urine pH 6.0 (5.0-8.0) 02/03/17 11:55 Ur Specific [place] 1.017 (1.003-1.030) 02/03/17 11:55 Urine Protein Negative mg/dL (NEGATIVE) 02/03/17 11:55 Urine Glucose (UA) Normal mg/dL (Normal) 02/03/17 11:55 Urine Ketones Negative mg/dL (NEGATIVE) 02/03/17 11:55 Urine Blood Negative (NEGATIVE) 02/03/17 11:55 Urine Nitrate Negative (NEGATIVE) 02/03/17 11:55 Urine Bilirubin 1+ (NEGATIVE) H 02/03/17 11:55 Urine Urobilinogen 4.0 mg/dL (0.2-1.0) 02/03/17 11:55 Ur Leukocyte Esterase Neg Murali/uL (Negative) 02/03/17 11:55 Urine WBC (Auto) 4 /hpf (0-5) 02/03/17 11:55 Urine RBC (Auto) < 1 /hpf (0-3) 02/03/17 11:55 Ur Squamous Epith Cells < 1 /hpf (0-5) 02/03/17 11:55 Fluid Source Peritoneal 02/04/17 16:08 Fluid Appearance Sl cloudy (CLEAR) 02/04/17 16:08 Fluid WBC 162.0 /mm3 (0.0-300.0) 02/04/17 16:08 Fluid RBC 1588.0 /mm3 (0.0-0.0) H 02/04/17 16:08 Fluid Tot Cell Count TEST NOT PERFORMED 02/04/17 16:08 Fluid Neutrophils 1.0 % (0-0) H 02/04/17 16:08 Fluid Lymphocytes 98.0 % (0-0) H 02/04/17 16:08 Fld Monocyte/Macrophag 1 % (0-0) H 02/04/17 16:08 Fluid Comment 02/04/17 16:08 Peritoneal Tot Protein <3.0 g/dL 02/04/17 16:08 Urine Opiates Screen Negative (NEGATIVE) 02/03/17 17:06 Urine Methadone Screen Negative (NEGATIVE) 02/03/17 17:06 Ur Barbiturates Screen Negative (NEGATIVE) 02/03/17 17:06 Ur Phencyclidine Scrn Negative (NEGATIVE) 02/03/17 17:06 Ur Amphetamines Screen Negative (NEGATIVE) 02/03/17 17:06 U Benzodiazepines Scrn Negative (NEGATIVE) 02/03/17 17:06 U Oth Cocaine Metabols Negative (NEGATIVE) 02/03/17 17:06 U Cannabinoids Screen Negative (NEGATIVE) 02/03/17 17:06 Alcohol, Quantitative < 10 mg/dl (0-10) 02/03/17 16:58 Hepatitis A IgM Ab Negative (NEGATIVE) 02/05/17 07:01 Hep Bs Antigen Negative (NEGATIVE) 02/05/17 07:01 Hep B Core IgM Ab Negative (NEGATIVE) 02/05/17 07:01 Hepatitis C Antibody Negative (NEGATIVE) 02/05/17 07:01 Blood Type O POSITIVE 02/03/17 19:41 Antibody Screen Negative 02/03/17 19:41 Discharge Exam - Head Exam Head Exam: ATRAUMATIC, NORMAL INSPECTION Discharge Plan - Discharge Medications Prescriptions: Furosemide 40 mg PO BID #60 tablet Lactulose [Enulose] 30 gm PO BID 30 Days udc Potassium Chloride [K-Dur 20 mEq ER Tab] 40 meq PO DAILY #60 tab PrednisoLONE 40 mg PO DAILY #1 bottle Spironolactone [Aldactone] 100 mg PO BID #60 tablet - Follow Up Plan Condition: FAIR Disposition: HOME/ ROUTINE Instructions: Spironolactone (By mouth), Furosemide (By mouth), Potassium Chloride (By mouth), Lactulose (By mouth), Prednisolone (By mouth), Pancreatitis (DC), Cirrhosis (DC), Ascites (DC) Additional Instructions: Patient is to be discharged home per Dr. Dos Santos. Patient was cleared for discharge per Dr. Sykes. He is to follow up with Dr. Sykes in his GI clinic within one week. Patient is to follow up with his primary care physician within one week. If patient does not have a primary care physician, he is to follow up with the [facility] clinic located in the basement of [facility] Patient is to take his home medications as directed. Patient is to return to the hospital if new or worsening symptoms occur. Patient given prescriptions for his home medications. Lasix 40mg PO BID Lactulose 30gm PO BID Potassium Chloride 40meq daily Prednisolone 40mg PO daily Spironolactone 100mg PO BID Referrals: [facility] at [facility] [Outside] Igor Sykes MD [Staff Provider] - <Ranjeet Dos Santos - Last Filed: 02/08/17 22:53> Provider - Provider Date of Admission: 02/03/17 16:49 Attending physician: Ranjeet Dos Santos MD Time Spent in preparation of Discharge (in minutes): 35 Hospital Course - Lab Results Lab Results: Micro Results 02/04/17 16:37 Ascitic Fluid Gram Stain - Final 02/04/17 16:37 Ascitic Fluid Body Fluid Culture - Preliminary NO GROWTH AFTER 3 DAYS 02/04/17 10:55 Blood-Venous Blood Culture - Preliminary NO GROWTH AFTER 4 DAYS 02/04/17 11:25 Blood-Venous Blood Culture - Preliminary NO GROWTH AFTER 3 DAYS 02/03/17 11:26 Urine Urine Culture - Final No Growth (<1,000 CFU/ML) Most Recent Lab Values WBC 9.7 K/uL (4.8-10.8) 02/08/17 06:23 RBC 2.30 Mil/uL (4.40-5.90) L 02/08/17 06:23 Hgb 7.8 g/dL (12.0-18.0) L 02/08/17 06:23 Hct 22.2 % (35.0-51.0) L 02/08/17 06:23 MCV 96.7 fL (80.0-94.0) H 02/08/17 06:23 MCH 34.0 pg (27.0-31.0) H 02/08/17 06:23 MCHC 35.1 g/dL (33.0-37.0) 02/08/17 06:23 RDW 19.0 % (11.5-14.5) H 02/08/17 06:23 Plt Count 94 K/uL (130-400) L 02/08/17 06:23 MPV 7.5 fL (7.2-11.7) 02/08/17 06:23 Neut % (Auto) 80.1 % (50.0-75.0) H 02/08/17 06:23 Lymph % (Auto) 8.3 % (20.0-40.0) L 02/08/17 06:23 Sabine % (Auto) 10.7 % (0.0-10.0) H 02/08/17 06:23 Eos % (Auto) 0.5 % (0.0-4.0) 02/08/17 06:23 Baso % (Auto) 0.4 % (0.0-2.0) 02/08/17 06:23 Neut # 7.8 K/uL (1.8-7.0) H 02/08/17 06:23 Lymph # 0.8 K/uL (1.0-4.3) L 02/08/17 06:23 Sabine # 1.0 K/uL (0.0-0.8) H 02/08/17 06:23 Eos # 0.0 K/uL (0.0-0.7) 02/08/17 06:23 Baso # 0.0 K/uL (0.0-0.2) 02/08/17 06:23 Neutrophils % (Manual) 83 % (50-75) H 02/08/17 06:23 Band Neutrophils % 1 % (0-2) 02/08/17 06:23 Lymphocytes % (Manual) 6 % (20-40) L 02/08/17 06:23 Monocytes % (Manual) 9 % (0-10) 02/08/17 06:23 Myelocytes % 1 % (0-0) H 02/08/17 06:23 Differential Comment 02/05/17 07:01 Toxic Granulation Present 02/08/17 06:23 Platelet Estimate Decreased (NORMAL) L 02/08/17 06:23 Hypochromasia (manual) Moderate 02/08/17 06:23 Poikilocytosis (manual Slight 02/08/17 06:23 Anisocytosis (manual) Slight 02/08/17 06:23 Target Cells Slight 02/08/17 06:23 Ovalocytes Slight 02/08/17 06:23 Nedra Cells Slight 02/08/17 06:23 PT 24.1 SECONDS (9.7-12.2) H 02/08/17 11:55 INR 2.1 02/08/17 11:55 APTT 37 SECONDS (21-34) H 02/04/17 06:25 Sodium 134 mmol/L (132-148) 02/08/17 06:23 Potassium 4.1 mmol/L (3.6-5.2) 02/08/17 06:23 Chloride 101 mmol/L (98-107) 02/08/17 06:23 Carbon Dioxide 22 mmol/L (22-30) 02/08/17 06:23 Anion Gap 15 (10-20) 02/08/17 06:23 BUN 8 mg/dL (9-20) L 02/08/17 06:23 Creatinine 0.7 mg/dL (0.8-1.5) L 02/08/17 06:23 Est GFR ( Amer) > 60 02/08/17 06:23 Est GFR (Non-Af Amer) > 60 02/08/17 06:23 Random Glucose 115 mg/dL (75-110) H 02/08/17 06:23 Calcium 8.4 mg/dl (8.6-10.4) L 02/08/17 06:23 Total Bilirubin 5.3 mg/dL (0.2-1.3) H 02/08/17 06:23 AST 41 U/L (17-59) 02/08/17 06:23 ALT 33 U/L (21-72) 02/08/17 06:23 Alkaline Phosphatase 132 U/L (38-126) H 02/08/17 06:23 Ammonia 23 umol/L (9-33) D 02/04/17 07:33 Total Protein 7.0 g/dL (6.3-8.3) 02/08/17 06:23 Albumin 2.4 g/dL (3.5-5.0) L 02/08/17 06:23 Globulin 4.5 gm/dL (2.2-3.9) H 02/08/17 06:23 Albumin/Globulin Ratio 0.5 (1.0-2.1) L 02/08/17 06:23 Lipase 266 U/L (23-300) 02/04/17 07:33 Alpha Fetoprotein 2.7 ng/mL (0.0-7.5) 02/04/17 11:03 Urine Color [place] (YELLOW) 02/03/17 11:55 Urine Clarity Clear (Clear) 02/03/17 11:55 Urine pH 6.0 (5.0-8.0) 02/03/17 11:55 Ur Specific [place] 1.017 (1.003-1.030) 02/03/17 11:55 Urine Protein Negative mg/dL (NEGATIVE) 02/03/17 11:55 Urine Glucose (UA) Normal mg/dL (Normal) 02/03/17 11:55 Urine Ketones Negative mg/dL (NEGATIVE) 02/03/17 11:55 Urine Blood Negative (NEGATIVE) 02/03/17 11:55 Urine Nitrate Negative (NEGATIVE) 02/03/17 11:55 Urine Bilirubin 1+ (NEGATIVE) H 02/03/17 11:55 Urine Urobilinogen 4.0 mg/dL (0.2-1.0) 02/03/17 11:55 Ur Leukocyte Esterase Neg Murali/uL (Negative) 02/03/17 11:55 Urine WBC (Auto) 4 /hpf (0-5) 02/03/17 11:55 Urine RBC (Auto) < 1 /hpf (0-3) 02/03/17 11:55 Ur Squamous Epith Cells < 1 /hpf (0-5) 02/03/17 11:55 Fluid Source Peritoneal 02/04/17 16:08 Fluid Appearance Sl cloudy (CLEAR) 02/04/17 16:08 Fluid WBC 162.0 /mm3 (0.0-300.0) 02/04/17 16:08 Fluid RBC 1588.0 /mm3 (0.0-0.0) H 02/04/17 16:08 Fluid Tot Cell Count TEST NOT PERFORMED 02/04/17 16:08 Fluid Neutrophils 1.0 % (0-0) H 02/04/17 16:08 Fluid Lymphocytes 98.0 % (0-0) H 02/04/17 16:08 Fld Monocyte/Macrophag 1 % (0-0) H 02/04/17 16:08 Fluid Albumin 0.3 g/dL 02/04/17 16:08 Fluid Comment 02/04/17 16:08 Peritoneal Tot Protein <3.0 g/dL 02/04/17 16:08 Urine Opiates Screen Negative (NEGATIVE) 02/03/17 17:06 Urine Methadone Screen Negative (NEGATIVE) 02/03/17 17:06 Ur Barbiturates Screen Negative (NEGATIVE) 02/03/17 17:06 Ur Phencyclidine Scrn Negative (NEGATIVE) 02/03/17 17:06 Ur Amphetamines Screen Negative (NEGATIVE) 02/03/17 17:06 U Benzodiazepines Scrn Negative (NEGATIVE) 02/03/17 17:06 U Oth Cocaine Metabols Negative (NEGATIVE) 02/03/17 17:06 U Cannabinoids Screen Negative (NEGATIVE) 02/03/17 17:06 Alcohol, Quantitative < 10 mg/dl (0-10) 02/03/17 16:58 Hepatitis A IgM Ab Negative (NEGATIVE) 02/05/17 07:01 Hep Bs Antigen Negative (NEGATIVE) 02/05/17 07:01 Hep B Core IgM Ab Negative (NEGATIVE) 02/05/17 07:01 Hepatitis C Antibody Negative (NEGATIVE) 02/05/17 07:01 Blood Type O POSITIVE 02/03/17 19:41 Antibody Screen Negative 02/03/17 19:41
--- NOTE | 2017-02-09 06:52 | CP.PCM.DIS ---
<Kevon Moore - Last Filed: 02/09/17 06:23> Provider - Provider Date of Admission: 02/03/17 16:49 Attending physician: Ranjeet Dos Santos MD Consults: IR consult - Dr. Ayala, ascites GI consult - Dr. Sykes, ascites Time Spent in preparation of Discharge (in minutes): 20 Hospital Course - Lab Results Lab Results: Micro Results 02/04/17 16:37 Ascitic Fluid Gram Stain - Final 02/04/17 16:37 Ascitic Fluid Body Fluid Culture - Preliminary NO GROWTH AFTER 3 DAYS 02/04/17 10:55 Blood-Venous Blood Culture - Preliminary NO GROWTH AFTER 4 DAYS 02/04/17 11:25 Blood-Venous Blood Culture - Preliminary NO GROWTH AFTER 3 DAYS 02/03/17 11:26 Urine Urine Culture - Final No Growth (<1,000 CFU/ML) Most Recent Lab Values WBC 9.7 K/uL (4.8-10.8) 02/08/17 06:23 RBC 2.30 Mil/uL (4.40-5.90) L 02/08/17 06:23 Hgb 7.8 g/dL (12.0-18.0) L 02/08/17 06:23 Hct 22.2 % (35.0-51.0) L 02/08/17 06:23 MCV 96.7 fL (80.0-94.0) H 02/08/17 06:23 MCH 34.0 pg (27.0-31.0) H 02/08/17 06:23 MCHC 35.1 g/dL (33.0-37.0) 02/08/17 06:23 RDW 19.0 % (11.5-14.5) H 02/08/17 06:23 Plt Count 94 K/uL (130-400) L 02/08/17 06:23 MPV 7.5 fL (7.2-11.7) 02/08/17 06:23 Neut % (Auto) 80.1 % (50.0-75.0) H 02/08/17 06:23 Lymph % (Auto) 8.3 % (20.0-40.0) L 02/08/17 06:23 [place] % (Auto) 10.7 % (0.0-10.0) H 02/08/17 06:23 Eos % (Auto) 0.5 % (0.0-4.0) 02/08/17 06:23 Baso % (Auto) 0.4 % (0.0-2.0) 02/08/17 06:23 Neut # 7.8 K/uL (1.8-7.0) H 02/08/17 06:23 Lymph # 0.8 K/uL (1.0-4.3) L 02/08/17 06:23 [place] # 1.0 K/uL (0.0-0.8) H 02/08/17 06:23 Eos # 0.0 K/uL (0.0-0.7) 02/08/17 06:23 Baso # 0.0 K/uL (0.0-0.2) 02/08/17 06:23 Neutrophils % (Manual) 83 % (50-75) H 02/08/17 06:23 Band Neutrophils % 1 % (0-2) 02/08/17 06:23 Lymphocytes % (Manual) 6 % (20-40) L 02/08/17 06:23 Monocytes % (Manual) 9 % (0-10) 02/08/17 06:23 Myelocytes % 1 % (0-0) H 02/08/17 06:23 Differential Comment 02/05/17 07:01 Toxic Granulation Present 02/08/17 06:23 Platelet Estimate Decreased (NORMAL) L 02/08/17 06:23 Hypochromasia (manual) Moderate 02/08/17 06:23 Poikilocytosis (manual Slight 02/08/17 06:23 Anisocytosis (manual) Slight 02/08/17 06:23 Target Cells Slight 02/08/17 06:23 Ovalocytes Slight 02/08/17 06:23 Cliff Cells Slight 02/08/17 06:23 PT 24.1 SECONDS (9.7-12.2) H 02/08/17 11:55 INR 2.1 02/08/17 11:55 APTT 37 SECONDS (21-34) H 02/04/17 06:25 Sodium 134 mmol/L (132-148) 02/08/17 06:23 Potassium 4.1 mmol/L (3.6-5.2) 02/08/17 06:23 Chloride 101 mmol/L (98-107) 02/08/17 06:23 Carbon Dioxide 22 mmol/L (22-30) 02/08/17 06:23 Anion Gap 15 (10-20) 02/08/17 06:23 BUN 8 mg/dL (9-20) L 02/08/17 06:23 Creatinine 0.7 mg/dL (0.8-1.5) L 02/08/17 06:23 Est GFR ( Amer) > 60 02/08/17 06:23 Est GFR (Non-Af Amer) > 60 02/08/17 06:23 Random Glucose 115 mg/dL (75-110) H 02/08/17 06:23 Calcium 8.4 mg/dl (8.6-10.4) L 02/08/17 06:23 Total Bilirubin 5.3 mg/dL (0.2-1.3) H 02/08/17 06:23 AST 41 U/L (17-59) 02/08/17 06:23 ALT 33 U/L (21-72) 02/08/17 06:23 Alkaline Phosphatase 132 U/L (38-126) H 02/08/17 06:23 Ammonia 23 umol/L (9-33) D 02/04/17 07:33 Total Protein 7.0 g/dL (6.3-8.3) 02/08/17 06:23 Albumin 2.4 g/dL (3.5-5.0) L 02/08/17 06:23 Globulin 4.5 gm/dL (2.2-3.9) H 02/08/17 06:23 Albumin/Globulin Ratio 0.5 (1.0-2.1) L 02/08/17 06:23 Lipase 266 U/L (23-300) 02/04/17 07:33 Alpha Fetoprotein 2.7 ng/mL (0.0-7.5) 02/04/17 11:03 Urine Color [place] (YELLOW) 02/03/17 11:55 Urine Clarity Clear (Clear) 02/03/17 11:55 Urine pH 6.0 (5.0-8.0) 02/03/17 11:55 Ur Specific [place] 1.017 (1.003-1.030) 02/03/17 11:55 Urine Protein Negative mg/dL (NEGATIVE) 02/03/17 11:55 Urine Glucose (UA) Normal mg/dL (Normal) 02/03/17 11:55 Urine Ketones Negative mg/dL (NEGATIVE) 02/03/17 11:55 Urine Blood Negative (NEGATIVE) 02/03/17 11:55 Urine Nitrate Negative (NEGATIVE) 02/03/17 11:55 Urine Bilirubin 1+ (NEGATIVE) H 02/03/17 11:55 Urine Urobilinogen 4.0 mg/dL (0.2-1.0) 02/03/17 11:55 Ur Leukocyte Esterase Neg Murali/uL (Negative) 02/03/17 11:55 Urine WBC (Auto) 4 /hpf (0-5) 02/03/17 11:55 Urine RBC (Auto) < 1 /hpf (0-3) 02/03/17 11:55 Ur Squamous Epith Cells < 1 /hpf (0-5) 02/03/17 11:55 Fluid Source Peritoneal 02/04/17 16:08 Fluid Appearance Sl cloudy (CLEAR) 02/04/17 16:08 Fluid WBC 162.0 /mm3 (0.0-300.0) 02/04/17 16:08 Fluid RBC 1588.0 /mm3 (0.0-0.0) H 02/04/17 16:08 Fluid Tot Cell Count TEST NOT PERFORMED 02/04/17 16:08 Fluid Neutrophils 1.0 % (0-0) H 02/04/17 16:08 Fluid Lymphocytes 98.0 % (0-0) H 02/04/17 16:08 Fld Monocyte/Macrophag 1 % (0-0) H 02/04/17 16:08 Fluid Albumin 0.3 g/dL 02/04/17 16:08 Fluid Comment 02/04/17 16:08 Peritoneal Tot Protein <3.0 g/dL 02/04/17 16:08 Urine Opiates Screen Negative (NEGATIVE) 02/03/17 17:06 Urine Methadone Screen Negative (NEGATIVE) 02/03/17 17:06 Ur Barbiturates Screen Negative (NEGATIVE) 02/03/17 17:06 Ur Phencyclidine Scrn Negative (NEGATIVE) 02/03/17 17:06 Ur Amphetamines Screen Negative (NEGATIVE) 02/03/17 17:06 U Benzodiazepines Scrn Negative (NEGATIVE) 02/03/17 17:06 U Oth Cocaine Metabols Negative (NEGATIVE) 02/03/17 17:06 U Cannabinoids Screen Negative (NEGATIVE) 02/03/17 17:06 Alcohol, Quantitative < 10 mg/dl (0-10) 02/03/17 16:58 Hepatitis A IgM Ab Negative (NEGATIVE) 02/05/17 07:01 Hep Bs Antigen Negative (NEGATIVE) 02/05/17 07:01 Hep B Core IgM Ab Negative (NEGATIVE) 02/05/17 07:01 Hepatitis C Antibody Negative (NEGATIVE) 02/05/17 07:01 Blood Type O POSITIVE 02/03/17 19:41 Antibody Screen Negative 02/03/17 19:41 - Hospital Course Hospital Course: As per admission documentation, Patient is a 41M presents with abdominal pain, leg pain and vomiting x 3 episodes. Patient states he's had swelling of his abdomen for 3-4 months. Patient said he used to drink a case of beer a day, but stopped 3-4 months ago due to his abdominal swelling. Patient states the pain was in his lower abdomen and left upper quadrant, but was given pain medication in ER and does not have issues at this time. Patient admits to subjective fever, leg pain without numbness. Patient Denies difficulty with vision, nausea, difficulty walking. Patient was given pain medication and is not feeling abdominal pain at this time. Hospital course, Patient was admitted for abdominal pain with ascities. IR consulted, Dr. Ayala for paracenthesis. GI consulted, Dr. Sykes for cirrhosis. Patient's INR was elevated at 2.4 on admission which is too high for paracentesis. He was transfused FFP and vitamin K. Albumin was low as well, repleted. Abd/Pelvis CT 02/03/17 - Extensive diffuse abdominal and pelvic ascites. Nodular hepatic contour consistent with cirrhosis. Heterogeneous hepatic parenchyma. Splenomegaly. Cholelithiasis. Nodular appearance of the left adrenal gland. Question pancreatic prominence; otherwise grossly unremarkable unenhanced appearance. Recommend correlation with amylase and lipase. Absence of oral contrast limits evaluation for bowel pathology however colonic wall appears thickened ; correlate clinically for possibility of colitis (i.e. infectious, inflammatory, ischemic). Fluid filled umbilical hernia. Right basilar atelectasis/ pneumonia. Paracenthesis on 02/04/17 - given 2 units of FFP prior to procedure. 1.5 L of straw color fluid drained from RLQ. Fluid analysis shows transudative fluid. Liver CT 02/05/17 - Cirrhosis associated is with findings consistent with portal hypertension including large ascites and splenomegaly. No evidence of liver mass. The portal veins are patent. The hepatic veins are not clearly visualized this exam. No CT evidence of pancreatic mass or dilated main pancreatic duct. Mild anasarca. Patient was transfused 1 unit of FFP on 02/04, 02/05, 02/07 and 2 units on 02/08 but the patients INR never decreased below 2.0. IR refused to do paracenthesis due to risk of bleeding. Dr. Sykes cleared patient for discharged and instructed him to follow up in his office for office procedure. Patient had no acute events and vitals remained stable throughout his hospital stay. Discharge Instructions, Patient is to be discharged home per Dr. Dos Santos. Patient was cleared for discharge per Dr. Sykes. He is to follow up with Dr. Sykes in his GI clinic within one week. Patient is to follow up with his primary care physician within one week. If patient does not have a primary care physician, he is to follow up with the neighborhood clinic located in the basement of [facility]. Patient is to take his home medications as directed. Patient is to return to the hospital if new or worsening symptoms occur. Patient given prescriptions for his home medications. Lasix 40mg PO BID Lactulose 30gm PO BID Potassium Chloride 40meq daily Prednisolone 40mg PO daily Spironolactone 100mg PO BID - Date & Time of H&P Date of H&P: 02/03/17 Time of H&P: 18:30 Discharge Exam - Head Exam Head Exam: ATRAUMATIC, NORMAL INSPECTION - Eye Exam Eye Exam: EOMI, PERRL, Scleral icterus - ENT Exam ENT Exam: Mucous Membranes Moist - Respiratory Exam Respiratory Exam: Rales (bases b/l), NORMAL BREATHING PATTERN. absent: Accessory Muscle Use, Respiratory Distress - Cardiovascular Exam Cardiovascular Exam: REGULAR RHYTHM, +S1, +S2 - GI/Abdominal Exam GI & Abdominal Exam: Distended, Soft. absent: Guarding, Rigid - Extremities Exam Extremities exam: normal capillary refill, normal inspection, pedal pulses present - Neurological Exam Neurological exam: Alert, CN II-XII Intact, Oriented x3 - Psychiatric Exam Psychiatric exam: Normal Affect, Normal Mood - Skin Skin Exam: Dry, Warm Additional comments: yellow appearance. Discharge Plan - Discharge Medications Prescriptions: Furosemide 40 mg PO BID #60 tablet Lactulose [Enulose] 30 gm PO BID 30 Days udc Potassium Chloride [K-Dur 20 mEq ER Tab] 40 meq PO DAILY #60 tab PrednisoLONE 40 mg PO DAILY #1 bottle Spironolactone [Aldactone] 100 mg PO BID #60 tablet - Follow Up Plan Condition: FAIR Disposition: HOME/ ROUTINE Instructions: Spironolactone (By mouth), Furosemide (By mouth), Potassium Chloride (By mouth), Lactulose (By mouth), Prednisolone (By mouth), Pancreatitis (DC), Cirrhosis (DC), Acute Abdominal Pain (DC), Acute Abdominal Pain (GEN), Ascites (DC) Additional Instructions: Patient is to be discharged home per Dr. Dos Santos. Patient was cleared for discharge per Dr. Sykes. He is to follow up with Dr. Sykes in his GI clinic within one week. Patient is to follow up with his primary care physician within one week. If patient does not have a primary care physician, he is to follow up with the [facility] clinic located in the [facility]. Patient is to take his home medications as directed. Patient is to return to the hospital if new or worsening symptoms occur. Patient given prescriptions for his home medications. Lasix 40mg PO BID Lactulose 30gm PO BID Potassium Chloride 40meq daily Prednisolone 40mg PO daily Spironolactone 100mg PO BID Referrals: [facility] [Outside] Igor Sykes MD [Staff Provider] - <Ranjeet Dos Santos - Last Filed: 02/09/17 16:12> Provider - Provider Date of Admission: 02/03/17 16:49 Attending physician: Ranjeet Dos Santos MD Time Spent in preparation of Discharge (in minutes): 30 Hospital Course - Lab Results Lab Results: Micro Results 02/04/17 16:37 Ascitic Fluid Gram Stain - Final 02/04/17 16:37 Ascitic Fluid Body Fluid Culture - Final No growth. 02/04/17 10:55 Blood-Venous Blood Culture - Final NO GROWTH AFTER 5 DAYS 02/04/17 10:55 Blood-Venous Gram Stain - Final TEST NOT PERFORMED 02/04/17 11:25 Blood-Venous Blood Culture - Preliminary NO GROWTH AFTER 4 DAYS 02/03/17 11:26 Urine Urine Culture - Final No Growth (<1,000 CFU/ML) Most Recent Lab Values WBC 9.7 K/uL (4.8-10.8) 02/08/17 06:23 RBC 2.30 Mil/uL (4.40-5.90) L 02/08/17 06:23 Hgb 7.8 g/dL (12.0-18.0) L 02/08/17 06:23 Hct 22.2 % (35.0-51.0) L 02/08/17 06:23 MCV 96.7 fL (80.0-94.0) H 02/08/17 06:23 MCH 34.0 pg (27.0-31.0) H 02/08/17 06:23 MCHC 35.1 g/dL (33.0-37.0) 02/08/17 06:23 RDW 19.0 % (11.5-14.5) H 02/08/17 06:23 Plt Count 94 K/uL (130-400) L 02/08/17 06:23 MPV 7.5 fL (7.2-11.7) 02/08/17 06:23 Neut % (Auto) 80.1 % (50.0-75.0) H 02/08/17 06:23 Lymph % (Auto) 8.3 % (20.0-40.0) L 02/08/17 06:23 [place] % (Auto) 10.7 % (0.0-10.0) H 02/08/17 06:23 Eos % (Auto) 0.5 % (0.0-4.0) 02/08/17 06:23 Baso % (Auto) 0.4 % (0.0-2.0) 02/08/17 06:23 Neut # 7.8 K/uL (1.8-7.0) H 02/08/17 06:23 Lymph # 0.8 K/uL (1.0-4.3) L 02/08/17 06:23 [place] # 1.0 K/uL (0.0-0.8) H 02/08/17 06:23 Eos # 0.0 K/uL (0.0-0.7) 02/08/17 06:23 Baso # 0.0 K/uL (0.0-0.2) 02/08/17 06:23 Neutrophils % (Manual) 83 % (50-75) H 02/08/17 06:23 Band Neutrophils % 1 % (0-2) 02/08/17 06:23 Lymphocytes % (Manual) 6 % (20-40) L 02/08/17 06:23 Monocytes % (Manual) 9 % (0-10) 02/08/17 06:23 Myelocytes % 1 % (0-0) H 02/08/17 06:23 Differential Comment 02/05/17 07:01 Toxic Granulation Present 02/08/17 06:23 Platelet Estimate Decreased (NORMAL) L 02/08/17 06:23 Hypochromasia (manual) Moderate 02/08/17 06:23 Poikilocytosis (manual Slight 02/08/17 06:23 Anisocytosis (manual) Slight 02/08/17 06:23 Target Cells Slight 02/08/17 06:23 Ovalocytes Slight 02/08/17 06:23 [place] Cells Slight 02/08/17 06:23 PT 24.1 SECONDS (9.7-12.2) H 02/08/17 11:55 INR 2.1 02/08/17 11:55 APTT 37 SECONDS (21-34) H 02/04/17 06:25 Sodium 134 mmol/L (132-148) 02/08/17 06:23 Potassium 4.1 mmol/L (3.6-5.2) 02/08/17 06:23 Chloride 101 mmol/L (98-107) 02/08/17 06:23 Carbon Dioxide 22 mmol/L (22-30) 02/08/17 06:23 Anion Gap 15 (10-20) 02/08/17 06:23 BUN 8 mg/dL (9-20) L 02/08/17 06:23 Creatinine 0.7 mg/dL (0.8-1.5) L 02/08/17 06:23 Est GFR ( Amer) > 60 02/08/17 06:23 Est GFR (Non-Af Amer) > 60 02/08/17 06:23 Random Glucose 115 mg/dL (75-110) H 02/08/17 06:23 Calcium 8.4 mg/dl (8.6-10.4) L 02/08/17 06:23 Total Bilirubin 5.3 mg/dL (0.2-1.3) H 02/08/17 06:23 AST 41 U/L (17-59) 02/08/17 06:23 ALT 33 U/L (21-72) 02/08/17 06:23 Alkaline Phosphatase 132 U/L (38-126) H 02/08/17 06:23 Ammonia 23 umol/L (9-33) D 02/04/17 07:33 Total Protein 7.0 g/dL (6.3-8.3) 02/08/17 06:23 Albumin 2.4 g/dL (3.5-5.0) L 02/08/17 06:23 Globulin 4.5 gm/dL (2.2-3.9) H 02/08/17 06:23 Albumin/Globulin Ratio 0.5 (1.0-2.1) L 02/08/17 06:23 Lipase 266 U/L (23-300) 02/04/17 07:33 Alpha Fetoprotein 2.7 ng/mL (0.0-7.5) 02/04/17 11:03 Urine Color [place] (YELLOW) 02/03/17 11:55 Urine Clarity Clear (Clear) 02/03/17 11:55 Urine pH 6.0 (5.0-8.0) 02/03/17 11:55 Ur Specific [place] 1.017 (1.003-1.030) 02/03/17 11:55 Urine Protein Negative mg/dL (NEGATIVE) 02/03/17 11:55 Urine Glucose (UA) Normal mg/dL (Normal) 02/03/17 11:55 Urine Ketones Negative mg/dL (NEGATIVE) 02/03/17 11:55 Urine Blood Negative (NEGATIVE) 02/03/17 11:55 Urine Nitrate Negative (NEGATIVE) 02/03/17 11:55 Urine Bilirubin 1+ (NEGATIVE) H 02/03/17 11:55 Urine Urobilinogen 4.0 mg/dL (0.2-1.0) 02/03/17 11:55 Ur Leukocyte Esterase Neg Murali/uL (Negative) 02/03/17 11:55 Urine WBC (Auto) 4 /hpf (0-5) 02/03/17 11:55 Urine RBC (Auto) < 1 /hpf (0-3) 02/03/17 11:55 Ur Squamous Epith Cells < 1 /hpf (0-5) 02/03/17 11:55 Fluid Source Peritoneal 02/04/17 16:08 Fluid Appearance Sl cloudy (CLEAR) 02/04/17 16:08 Fluid WBC 162.0 /mm3 (0.0-300.0) 02/04/17 16:08 Fluid RBC 1588.0 /mm3 (0.0-0.0) H 02/04/17 16:08 Fluid Tot Cell Count TEST NOT PERFORMED 02/04/17 16:08 Fluid Neutrophils 1.0 % (0-0) H 02/04/17 16:08 Fluid Lymphocytes 98.0 % (0-0) H 02/04/17 16:08 Fld Monocyte/Macrophag 1 % (0-0) H 02/04/17 16:08 Fluid Albumin 0.3 g/dL 02/04/17 16:08 Fluid Comment 02/04/17 16:08 Peritoneal Tot Protein <3.0 g/dL 02/04/17 16:08 Urine Opiates Screen Negative (NEGATIVE) 02/03/17 17:06 Urine Methadone Screen Negative (NEGATIVE) 02/03/17 17:06 Ur Barbiturates Screen Negative (NEGATIVE) 02/03/17 17:06 Ur Phencyclidine Scrn Negative (NEGATIVE) 02/03/17 17:06 Ur Amphetamines Screen Negative (NEGATIVE) 02/03/17 17:06 U Benzodiazepines Scrn Negative (NEGATIVE) 02/03/17 17:06 U Oth Cocaine Metabols Negative (NEGATIVE) 02/03/17 17:06 U Cannabinoids Screen Negative (NEGATIVE) 02/03/17 17:06 Alcohol, Quantitative < 10 mg/dl (0-10) 02/03/17 16:58 Hepatitis A IgM Ab Negative (NEGATIVE) 02/05/17 07:01 Hep Bs Antigen Negative (NEGATIVE) 02/05/17 07:01 Hep B Core IgM Ab Negative (NEGATIVE) 02/05/17 07:01 Hepatitis C Antibody Negative (NEGATIVE) 02/05/17 07:01 Blood Type O POSITIVE 02/03/17 19:41 Antibody Screen Negative 02/03/17 19:41 Attending/Attestation - Attestation I have personally seen and examined this patient.: Yes I have fully participated in the care of the patient.: Yes I have reviewed all pertinent clinical information, including history, physical exam and plan: Yes Notes (Text): 02/09/17 16:08 Patient was seen and examined on the day of discharge.NO SOB,no distress.His INR remained high with FFP and vit K. Additional Paracentesis was not done.Discussed with Dr Sykes. Patient was asked to take meds as instructed( lasix and aldactone dose was increased) and follow Dr Sykes as an out pt to arrange for paracentesis as needed.
== END 2017-02-08 18:52 | disposition home or self-care (01) | DRG 200 ==
LOC: C.ER 10:17 → EDBD 10:17 → C.9E 16:49 → C.3T 18:42
PROVIDERS: ADMIT Internal Medicine; ATTEND Internal Medicine
PROC: 0W9G3ZX Drainage of Peritoneal Cavity, Percutaneous Approach, Diagnostic (ICD-10-PCS; principal; 2017-02-04)
DX: K70.31 Alcoholic cirrhosis of liver with ascites (principal); K85.90 Acute pancreatitis without necrosis or infection, unspecified; D61.818 Other pancytopenia; F10.988 Alcohol use, unspecified with other alcohol-induced disorder; Z83.3 Family history of diabetes mellitus; Z82.49 Family history of ischemic heart disease and other diseases of the circulatory system; Z87.891 Personal history of nicotine dependence